=== PATIENT | male | born 1955 | race Caucasian/White ===

== ENCOUNTER → 2016-11-30 | Outpatient (CLI) | payer OTHER, BC ==
[~2016-11-30] MED LIST: NXM/40 PO; TRAM-10 PO
--- NOTE | 2016-11-30 15:03 | DIAGNOSTIC IMAGING REPORT ---
RIGHT SHOULDER MIN 2 VIEWS CLINICAL HISTORY: Right shoulder pain status post injury. COMPARISON: None FINDINGS: Alignment of the right acromioclavicular and glenohumeral joints is anatomic. No acute fracture is identified. Mild degenerative changes are present. IMPRESSION: No acute fracture or dislocation of the right shoulder. Electronically signed by: Favian Lundy M.D. 11/30/2016 3:01 PM Dictated Date/Time: 11/30/2016 3:00 PM
== END | disposition home or self-care (01) ==
LOC: C.RDSM 15:07
PROVIDERS: ATTEND Family Medicine
DX: S49.91XA Unspecified injury of right shoulder and upper arm, initial encounter (principal); X58.XXXA Exposure to other specified factors, initial encounter

== ENCOUNTER → 2017-03-13 | Outpatient (CLI) | payer OTHER, BC ==
--- NOTE | 2017-03-13 15:44 | DIAGNOSTIC IMAGING REPORT ---
MRI THE RIGHT SHOULDER NO CONTRAST CLINICAL HISTORY: Persistent right shoulder pain, unresponsive to conservative therapy COMPARISON STUDY: Conventional radiographic study dated 11/30/2016 FINDINGS: Imaging was performed in the axial, sagittal, and paracoronal planes. There are no areas of marrow edema to indicate neoplasm. There are no areas of marrow edema to indicate occult fracture. There is minor subcutaneous chondral marrow edema involving the lateral aspect of the humeral head. The bicipital tendon appears normal. There is no evidence of pathologic muscular atrophy. There is no evidence of rotator cuff tear. No labral tears are visualized on this nonarthrographic study. There are mild degenerative changes within the AC joint. IMPRESSION: 1. No evidence of rotator cuff tear 2. Normal bicipital tendon 3. Degenerative changes within the AC joint. Electronically signed by: Shimon Longoria M.D. 03/13/2017 3:42 PM Dictated Date/Time: 03/13/2017 2:46 PM
== END | disposition home or self-care (01) ==
LOC: C.MRIBC 13:52
PROVIDERS: ATTEND Family Medicine
DX: M25.511 Pain in right shoulder (principal)

== ENCOUNTER → 2017-10-23 | Outpatient (CLI) | payer BC ==
--- NOTE | 2017-10-23 16:44 | DIAGNOSTIC IMAGING REPORT ---
ABDOMEN 2VIEW W/PA CHEST RTN CLINICAL HISTORY: ABDOMINAL PAIN OF MULTIPLE SITES pain COMPARISON STUDY: 09/27/2016 FINDINGS: The soft tissues, psoas shadows, renal outlines and intestinal gas pattern appear normal. There is no evidence for bowel obstruction. There is no evidence for free intraperitoneal air. No abnormal abdominal calcifications are seen. A frontal view of the chest was performed and is unremarkable. IMPRESSION: Normal study. The above report was generated using voice recognition software. It may contain grammatical, syntax or spelling errors. Electronically signed by: Chao Ann M.D. 10/23/2017 4:43 PM Dictated Date/Time: 10/23/2017 4:42 PM
== END | disposition home or self-care (01) ==
LOC: C.RAD 16:20
PROVIDERS: ATTEND Internal Medicine
DX: R10.9 Unspecified abdominal pain (principal)

== ENCOUNTER → 2017-12-05 | Outpatient (CLI) | payer OTHER ==
[~2017-12-05] MED LIST changes: +OPTIRAY 320 IV PRN
--- NOTE | 2017-12-05 11:20 | DIAGNOSTIC IMAGING REPORT ---
CT OF THE ABDOMEN AND PELVIS WITH CONTRAST CLINICAL HISTORY: Abdominal pain. COMPARISON STUDY: CT of the abdomen November 09, 2014 and abdominal series October 23, 2017. TECHNIQUE: Following IV administration of 93 mL of [id number], axial images of the abdomen and pelvis were obtained from the lung bases to the proximal femurs. Images were reviewed in the axial, sagittal, and coronal planes. IV contrast was administered without complication. A dose lowering technique was utilized adhering to the principles of ALARA. Oral contrast was administered CT DOSE: 923.15 mGycm FINDINGS: Lung bases are clear. The liver, spleen, right adrenal gland, kidneys and pancreas are unremarkable. A 1.5 cm left adrenal nodule is unchanged since CT of November 07, 2014 consistent with a benign etiology. This likely reflects an adenoma. There is no biliary or pancreatic ductal dilatation. No abdominal or pelvic lymphadenopathy is present. Caliber and wall thickness of small and large bowel are normal. The appendix is normal. There is no ascites or lymphadenopathy. Prostate gland is mildly enlarged. Mild bladder wall thickening is likely due to underdistention. There is no ascites. There are no suspicious osseous lesions. Major vasculature of the abdomen and the pelvis is patent. IMPRESSION: 1. No acute process within the abdomen or pelvis. 2. Stable 1.5 cm left adrenal nodule since CT of November 07, 2014. Therefore, this is benign and likely reflects an adenoma. 3. Normal appendix. No bowel obstruction. Electronically signed by: Favian Lundy M.D. 12/05/2017 11:19 AM Dictated Date/Time: 12/05/2017 11:13 AM
== END | disposition home or self-care (01) ==
LOC: C.CTS 10:01
PROVIDERS: ATTEND Registered Nurse
DX: R10.11 Right upper quadrant pain (principal); R10.12 Left upper quadrant pain; T14.8XXA Other injury of unspecified body region, initial encounter; E27.9 Disorder of adrenal gland, unspecified; X58.XXXA Exposure to other specified factors, initial encounter

== ENCOUNTER 2021-09-01 12:04 | Inpatient (IN) ==
[2021-09-01] MEDS ORDERED: PROMETHAZINE 6.25 MG/50.25 ML BAG IV STA (12:26)
[2021-09-01] MEDS ORDERED: ONDANSETRON INJ 2 MG/ML 2 ML VIAL IV STA (12:26)
[2021-09-01] MEDS ORDERED: CEFEPIME 2,000 MG/20 ML VIAL IV STA (12:26)
[2021-09-01] MEDS ORDERED: SODIUM CHLORIDE 0.9% 1000ML 1,000 ML IV SCH (12:30)
--- NOTE | 2021-09-01 12:31 | Emergency Department Note ---
Impression & Plan Sepsis, Acute dehydration, Vomiting, Fever ED Provider Note NAME: AMNA MASON AGE: 66 SEX: M : 1955 ARRIVES VIA: Walk-In INFORMANT: [Patient][family] ED PROVIDER(S): [Castro Cordoba MD] CHIEF COMPLAINT: Illness HISTORY OF PRESENT ILLNESS: The patient is a 66-year-old male who had 2 teeth pulled yesterday. He is on amoxicillin and is on some narcotic pain medication. Yesterday evening, he began to feel ill with some nausea and vomiting, a fever, body aches and chills. He initially had some abdominal pain but that resolved. No diarrhea. He has some urinary frequency, no burning to urinate. The patient is not short of breath. No stuffy nose or sore throat, no real headache. He thought he might be allergic to his medications prescribed after the dental work. The patient is vaccinated against COVID-19, no Covid exposures. REVIEW OF SYSTEMS: See HPI for pertinent positives and negatives. A total of ten systems were reviewed and were otherwise negative. PMHx/PSHx: See Below SOCIAL HISTORY: See Below. PHYSICAL EXAM: GENERAL: Patient is in moderate distress, vomiting. HEENT: No acute trauma, normocephalic atraumatic, mucous membranes very dry, no nasal congestion, no scleral icterus. No exudate. The sockets were the teeth were pulled do not show drainage or surrounding erythema. NECK: No stridor, no adenopathy, no meningismus, trachea is midline. LUNGS: Clear to auscultation bilaterally, no wheeze, no rhonchi, breath sounds equal. Increased respiratory rate. HEART: Mildly tachycardic, regular rhythm. No murmurs. ABDOMEN: Soft, nontender, bowel sounds positive, no hernias, no peritonitis. EXTREMITIES: No cyanosis, mild bilateral pedal edema, full range of motion of all the joints without pain or difficulty, no signs for acute trauma. NEUROLOGIC: Oriented x 3, no acute motor or sensory deficits, no focal weakness. SKIN: No rash, no jaundice, no diaphoresis. DIFFERENTIAL DIAGNOSIS: Sepsis, UTI, pneumonia, COVID-19, metabolic abnormality, electrolyte abnormalities, cardiac sources, cellulitis, bacteremia, intracerebral event, toxicologic etiology, neurologic event, as well as other pathologies. EMERGENCY DEPARTMENT COURSE/PROCEDURES: ECG: Indication was tachycardia. The ECG shows a sinus tachycardia with a rate of 105. There is no ST elevation, no PVCs. The QTc is 415. Continuous Cardiac Monitoring: An order was placed for continuous cardiac monitoring. The monitor shows a rate of 113 with sinus tachycardia. Critical Care Note: I have personally spent 61 minutes of critical care time in the direct management of this patient. This includes bedside care, interpretation of diagnostic studies, and testing, discussion with consultants, patient, and family members, and other required patient management activities. This 61 minutes is in excess of all separately billable procedures. MEDICAL DECISION MAKING: There is a mild leukocytosis, this would be consistent with infection. There is a normal hemoglobin and platelet count. INR mildly elevated at 1.4. Sodium somewhat low at 132. Creatinine was elevated at 1.90, consistent with some acute kidney injury. Lactic acid level was over 3, consistent with sepsis/infection. There was elevation to the liver enzymes. Procalcitonin level was elevated. ECG showed a sinus tachycardia, no acute ischemia. Cardiac enzyme testing x1 is mildly elevated, this is consistent with acute cardiac injury/strain. Chest film shows some parenchymal congestion, no obvious focal pneumonia. No pneumothorax. Covid testing returned negative. Urinalysis was negative for infection. Abdominal and pelvis CT does not show any findings that would indicate infection. There were some gallstones but no acute cholecystitis. No diverticulitis, no bowel obstruction. The patient presents febrile, vomiting. He was dehydrated on exam, he appeared septic. The patient was aggressively managed. He was given IV Tylenol, IV cefepime. He received IV Zofran, IV Phenergan. He received 2 L of IV saline. The patient is aware of his findings. He is currently resting comfortably. He did have a slightly lower O2 saturation so he was placed on nasal cannula O2. The source of the infection is unclear. Bacteremia is of course a consideration given the recent dental work. Admission is warranted. I did speak with the patient and caseworker intake. The on-call hospitalist was consulted. We await the blood culture results. Past Med/Surg History Medical History Fall Severe epistaxis Surgical History No pertinent past surgical history Family History Mother Breast cancer Other Parkinson disease Prostate cancer Stroke Denies family history of Ovarian cancer Myocardial infarction Colorectal cancer Social History Smoking Status: Former smoker Tobacco Type: Cigarettes Second Hand Exposure: No; Hx Alcohol Use: Yes (1 glass of wine) Alcohol type: wine Alcohol Intake Frequency: 4 or More x per/Week Hx Substance Use: No Preferred Language: Mohawk Visual Impairment: No Limitations Hearing Ability: Normal marital status: Current Living Situation: Family current occupational status: employed current occupation: [employer] Feels Safe at Home: Yes Dental Care, Regularly: Yes Physical Activity Frequency: 5-6 Times per Week Allergies Allergies Allergy/AdvReac Type Severity Reaction Status Date / Time bee venom protein (honey bee) Allergy Unknown . Verified 09/01/21 14:58 atorvastatin AdvReac Unknown Verified 09/01/21 14:58 pravastatin AdvReac Unknown Verified 09/01/21 14:58 Home Meds Home Medications Medication Instructions Recorded Confirmed epinephrine 0.3 mg/0.3 mL 0.3 mg IM UD PRN #1 ea 08/05/19 09/01/21 injection, auto-injector acetaminophen 300 mg-codeine 30 mg 1 tab PO UD 09/01/21 09/01/21 tablet amoxicillin 500 mg capsule 500 mg PO TID 09/01/21 09/01/21 cholecalciferol (vitamin D3) 125 125 mcg PO DAILY 09/01/21 09/01/21 mcg (5,000 unit) tablet (Vitamin D3) rosuvastatin 5 mg tablet 5 mg PO Q OTHER DAY 09/01/21 09/01/21 Previous Rx's Medication Instructions Recorded mecobalamin (vitamin B12) 1,000 1,000 mcg PO DAILY #90 tab 05/25/20 mcg chewable tablet amlodipine 10 mg tablet 10 mg PO DAILY #90 tab 12/08/20 metformin 500 mg tablet 500 mg PO BID #180 tab 12/08/20 sildenafil (pulm.hypertension) 20 20 mg PO ONCE PRN #60 tab 02/17/21 mg tablet Results & Data (ED) Vital Signs Vital Signs - 24 hr 09/01/21 12:09 09/01/21 12:46 09/01/21 12:50 Temperature 39.1 C H Temperature Source Temporal Artery Scan Pulse Rate 120 H 103 H 105 H Pulse Rate from SpO2 Sensor Respiratory Rate 24 27 H 28 H Respiratory Effort / Characteristics Non-Labored Spontaneous Respiratory Depth Normal Respiratory Pattern Regular Blood Pressure 126/78 Blood Pressure Mean 94 Blood Pressure Position Sitting Pulse Oximetry 94 Oxygen Delivery Method Room Air Room Air Room Air Oxygen Flow Rate Sepsis Recent Fever Within 48 Hours No Sepsis New/Unexplained Change in Mental Status N/A Sepsis Action Taken by Nursing No Action Required 09/01/21 12:59 09/01/21 13:00 09/01/21 13:10 Temperature Temperature Source Pulse Rate 101 H 100 H Pulse Rate from SpO2 Sensor 102 H 100 H Respiratory Rate 27 H 25 H Respiratory Effort / Characteristics Respiratory Depth Respiratory Pattern Blood Pressure 138/66 Blood Pressure Mean 90 Blood Pressure Position Pulse Oximetry 93 93 Oxygen Delivery Method Room Air Room Air Room Air Oxygen Flow Rate Sepsis Recent Fever Within 48 Hours Sepsis New/Unexplained Change in Mental Status Sepsis Action Taken by Nursing 09/01/21 13:20 09/01/21 13:30 09/01/21 13:40 Temperature Temperature Source Pulse Rate 98 H 101 H 97 H Pulse Rate from SpO2 Sensor 97 H 101 H 97 H Respiratory Rate 24 27 H 25 H Respiratory Effort / Characteristics Respiratory Depth Respiratory Pattern Blood Pressure 124/63 Blood Pressure Mean 83 Blood Pressure Position Pulse Oximetry 92 94 98 Oxygen Delivery Method Room Air Room Air Room Air Oxygen Flow Rate Sepsis Recent Fever Within 48 Hours Sepsis New/Unexplained Change in Mental Status Sepsis Action Taken by Nursing 09/01/21 13:50 09/01/21 14:00 09/01/21 14:10 Temperature Temperature Source Pulse Rate 98 H 96 H 100 H Pulse Rate from SpO2 Sensor 97 H 96 H 99 H Respiratory Rate 24 22 24 Respiratory Effort / Characteristics Respiratory Depth Respiratory Pattern Blood Pressure 127/69 Blood Pressure Mean 88 Blood Pressure Position Pulse Oximetry 93 95 95 Oxygen Delivery Method Room Air Room Air Room Air Oxygen Flow Rate Sepsis Recent Fever Within 48 Hours Sepsis New/Unexplained Change in Mental Status Sepsis Action Taken by Nursing 09/01/21 14:20 09/01/21 14:30 09/01/21 14:40 Temperature Temperature Source Pulse Rate 104 H 112 H 115 H Pulse Rate from SpO2 Sensor 104 H 113 H 115 H Respiratory Rate 24 26 H 28 H Respiratory Effort / Characteristics Respiratory Depth Respiratory Pattern Blood Pressure 103/65 Blood Pressure Mean 77 Blood Pressure Position Pulse Oximetry 95 93 89 L Oxygen Delivery Method Room Air Room Air Room Air Oxygen Flow Rate Sepsis Recent Fever Within 48 Hours Sepsis New/Unexplained Change in Mental Status Sepsis Action Taken by Nursing 09/01/21 14:50 Temperature Temperature Source Pulse Rate 113 H Pulse Rate from SpO2 Sensor 108 H Respiratory Rate 12 Respiratory Effort / Characteristics Respiratory Depth Respiratory Pattern Blood Pressure Blood Pressure Mean Blood Pressure Position Pulse Oximetry 95 Oxygen Delivery Method Nasal Cannula Oxygen Flow Rate 2 Sepsis Recent Fever Within 48 Hours Sepsis New/Unexplained Change in Mental Status Sepsis Action Taken by Residential Medications Current Medication List: was personally reviewed by me Laboratory Data Attestation: I reviewed the patient's lab results. Result diagrams: 09/01/21 12:54 09/01/21 13:51 Lab Results 09/01/21 09/01/21 09/01/21 Range/Units 12:54 12:54 12:54 WBC 13.44 H (4.8-10.8) K/uL RBC 5.41 (4.7-6.1) M/uL Hgb 16.1 (14.0-18.0) g/dL Hct 47.8 (42-52) % MCV 88.4 (80-100) fL MCH 29.8 (25-34) pg MCHC 33.7 (32-36) g/dL RDW Std Deviation 44.1 (36.4-46.3) fL RDW Coeff of Kaylah 13.6 (11.5-14.5) % Plt Count 259 (130-400) K/uL MPV 9.7 (7.4-10.4) fL Immature Gran % (Auto) 0.7 % Neut % (Auto) 94.9 % Lymph % (Auto) 2.1 % [place] % (Auto) 2.2 % Eos % (Auto) 0.0 % Baso % (Auto) 0.1 % Neut # (Auto) 12.76 H (1.4-6.5) K/uL Lymph # (Auto) 0.28 L (1.2-3.4) K/uL [place] # (Auto) 0.29 (0.11-0.59) K/uL Eos # (Auto) 0.00 (0-0.5) K/uL Baso # (Auto) 0.02 (0-0.2) K/uL Immature Gran # (Auto) 0.09 H (0.00-0.02) K/uL PT 14.2 H (9.0-12.0) Seconds INR 1.4 H (0.9-1.1) APTT 28.2 (21.0-31.0) Seconds PTT Ratio 1.1 Sodium 132 L (136-145) mmol/L Potassium (3.5-5.1) mmol/L Chloride 101 (98-107) mmol/L Carbon Dioxide 23 (21-32) mmol/L Anion Gap 8.0 (3-11) BUN 30 H (7-18) mg/dl Creatinine 1.90 H (0.6-1.4) mg/dl Est Cr Clr Drug Dosing 45.3 ml/min Est GFR ( Amer) 41.4 ml/min Est GFR (Non-Af Amer) 35.7 ml/min BUN/Creatinine Ratio 15.9 (10-20) Glucose 166 H (70-99) mg/dl Lactate (0.4-2.0) mmol/L Calcium 9.8 (8.5-10.1) mg/dl Magnesium (1.8-2.4) mg/dl Total Bilirubin 2.6 H (0.2-1) mg/dl AST (15-37) U/L ALT 198 H (12-78) U/L Alkaline Phosphatase 98 (45-117) U/L Troponin I 0.082 H* (0-0.045) ng/ml Total Protein 7.5 (6.4-8.2) gm/dl Albumin 3.2 L (3.4-5.0) gm/dl Globulin 4.3 H (2.5-4.0) gm/dl Albumin/Globulin Ratio 0.7 L (0.9-2) Procalcitonin (0-0.5) ng/ml Urine Color Urine Appearance (Clear) Urine pH (4.5-7.5) Ur Specific [place] (1.000-1.030) Urine Protein (Negative) Urine Glucose (UA) (Negative) Urine Ketones (Negative) Urine Blood (Negative) Urine Nitrite (Negative) Urine Bilirubin (Negative) Urine Urobilinogen (Negative) Ur Leukocyte Esterase (Negative) Urine WBC (Auto) (0-5) /hpf Urine RBC (Auto) (0-4) /hpf U Hyaline Cast (Auto) (0-5) /lpf U Epithel Cells (Auto) (0-5) /lpf Urine Bacteria (Auto) (Negative) COVID-19 Eval Order SARS-CoV-2 (PCR) (Negative) 09/01/21 09/01/21 09/01/21 Range/Units 13:02 13:02 13:51 WBC (4.8-10.8) K/uL RBC (4.7-6.1) M/uL Hgb (14.0-18.0) g/dL Hct (42-52) % MCV (80-100) fL MCH (25-34) pg MCHC (32-36) g/dL RDW Std Deviation (36.4-46.3) fL RDW Coeff of Akylah (11.5-14.5) % Plt Count (130-400) K/uL MPV (7.4-10.4) fL Immature Gran % (Auto) % Neut % (Auto) % Lymph % (Auto) % [place] % (Auto) % Eos % (Auto) % Baso % (Auto) % Neut # (Auto) (1.4-6.5) K/uL Lymph # (Auto) (1.2-3.4) K/uL [place] # (Auto) (0.11-0.59) K/uL Eos # (Auto) (0-0.5) K/uL Baso # (Auto) (0-0.2) K/uL Immature Gran # (Auto) (0.00-0.02) K/uL PT (9.0-12.0) Seconds INR (0.9-1.1) APTT (21.0-31.0) Seconds PTT Ratio Sodium (136-145) mmol/L Potassium (3.5-5.1) mmol/L Chloride (98-107) mmol/L Carbon Dioxide (21-32) mmol/L Anion Gap (3-11) BUN (7-18) mg/dl Creatinine (0.6-1.4) mg/dl Est Cr Clr Drug Dosing ml/min Est GFR ( Amer) ml/min Est GFR (Non-Af Amer) ml/min BUN/Creatinine Ratio (10-20) Glucose (70-99) mg/dl Lactate 3.1 H* (0.4-2.0) mmol/L Calcium (8.5-10.1) mg/dl Magnesium (1.8-2.4) mg/dl Total Bilirubin (0.2-1) mg/dl AST (15-37) U/L ALT (12-78) U/L Alkaline Phosphatase (45-117) U/L Troponin I (0-0.045) ng/ml Total Protein (6.4-8.2) gm/dl Albumin (3.4-5.0) gm/dl Globulin (2.5-4.0) gm/dl Albumin/Globulin Ratio (0.9-2) Procalcitonin (0-0.5) ng/ml Urine Color Urine Appearance (Clear) Urine pH (4.5-7.5) Ur Specific [place] (1.000-1.030) Urine Protein (Negative) Urine Glucose (UA) (Negative) Urine Ketones (Negative) Urine Blood (Negative) Urine Nitrite (Negative) Urine Bilirubin (Negative) Urine Urobilinogen (Negative) Ur Leukocyte Esterase (Negative) Urine WBC (Auto) (0-5) /hpf Urine RBC (Auto) (0-4) /hpf U Hyaline Cast (Auto) (0-5) /lpf U Epithel Cells (Auto) (0-5) /lpf Urine Bacteria (Auto) (Negative) COVID-19 Eval Order Covid19 at [facility] SARS-CoV-2 (PCR) NEGATIVE (Negative) 09/01/21 09/01/21 09/01/21 Range/Units 13:51 13:51 14:50 WBC (4.8-10.8) K/uL RBC (4.7-6.1) M/uL Hgb (14.0-18.0) g/dL Hct (42-52) % MCV (80-100) fL MCH (25-34) pg MCHC (32-36) g/dL RDW Std Deviation (36.4-46.3) fL RDW Coeff of Kaylah (11.5-14.5) % Plt Count (130-400) K/uL MPV (7.4-10.4) fL Immature Gran % (Auto) % Neut % (Auto) % Lymph % (Auto) % [place] % (Auto) % Eos % (Auto) % Baso % (Auto) % Neut # (Auto) (1.4-6.5) K/uL Lymph # (Auto) (1.2-3.4) K/uL [place] # (Auto) (0.11-0.59) K/uL Eos # (Auto) (0-0.5) K/uL Baso # (Auto) (0-0.2) K/uL Immature Gran # (Auto) (0.00-0.02) K/uL PT (9.0-12.0) Seconds INR (0.9-1.1) APTT (21.0-31.0) Seconds PTT Ratio Sodium (136-145) mmol/L Potassium 4.5 (3.5-5.1) mmol/L Chloride (98-107) mmol/L Carbon Dioxide (21-32) mmol/L Anion Gap (3-11) BUN (7-18) mg/dl Creatinine (0.6-1.4) mg/dl Est Cr Clr Drug Dosing ml/min Est GFR ( Amer) ml/min Est GFR (Non-Af Amer) ml/min BUN/Creatinine Ratio (10-20) Glucose (70-99) mg/dl Lactate (0.4-2.0) mmol/L Calcium (8.5-10.1) mg/dl Magnesium 2.0 (1.8-2.4) mg/dl Total Bilirubin (0.2-1) mg/dl AST 152 H (15-37) U/L ALT (12-78) U/L Alkaline Phosphatase (45-117) U/L Troponin I (0-0.045) ng/ml Total Protein (6.4-8.2) gm/dl Albumin (3.4-5.0) gm/dl Globulin (2.5-4.0) gm/dl Albumin/Globulin Ratio (0.9-2) Procalcitonin 39.49 H (0-0.5) ng/ml Urine Color Dark Yellow Urine Appearance Clear (Clear) Urine pH 6.5 (4.5-7.5) Ur Specific [place] 1.026 (1.000-1.030) Urine Protein 2+ H (Negative) Urine Glucose (UA) Negative (Negative) Urine Ketones Negative (Negative) Urine Blood 3+ H (Negative) Urine Nitrite Negative (Negative) Urine Bilirubin 1+ H (Negative) Urine Urobilinogen Negative (Negative) Ur Leukocyte Esterase Negative (Negative) Urine WBC (Auto) 1-5 (0-5) /hpf Urine RBC (Auto) 0-4 (0-4) /hpf U Hyaline Cast (Auto) 1-5 (0-5) /lpf U Epithel Cells (Auto) 20-30 H (0-5) /lpf Urine Bacteria (Auto) Negative (Negative) COVID-19 Eval Order SARS-CoV-2 (PCR) (Negative) 09/01/21 Range/Units 15:54 WBC (4.8-10.8) K/uL RBC (4.7-6.1) M/uL Hgb (14.0-18.0) g/dL Hct (42-52) % MCV (80-100) fL MCH (25-34) pg MCHC (32-36) g/dL RDW Std Deviation (36.4-46.3) fL RDW Coeff of Kaylah (11.5-14.5) % Plt Count (130-400) K/uL MPV (7.4-10.4) fL Immature Gran % (Auto) % Neut % (Auto) % Lymph % (Auto) % [place] % (Auto) % Eos % (Auto) % Baso % (Auto) % Neut # (Auto) (1.4-6.5) K/uL Lymph # (Auto) (1.2-3.4) K/uL [place] # (Auto) (0.11-0.59) K/uL Eos # (Auto) (0-0.5) K/uL Baso # (Auto) (0-0.2) K/uL Immature Gran # (Auto) (0.00-0.02) K/uL PT (9.0-12.0) Seconds INR (0.9-1.1) APTT (21.0-31.0) Seconds PTT Ratio Sodium (136-145) mmol/L Potassium (3.5-5.1) mmol/L Chloride (98-107) mmol/L Carbon Dioxide (21-32) mmol/L Anion Gap (3-11) BUN (7-18) mg/dl Creatinine (0.6-1.4) mg/dl Est Cr Clr Drug Dosing ml/min Est GFR ( Amer) ml/min Est GFR (Non-Af Amer) ml/min BUN/Creatinine Ratio (10-20) Glucose (70-99) mg/dl Lactate 2.0 (0.4-2.0) mmol/L Calcium (8.5-10.1) mg/dl Magnesium (1.8-2.4) mg/dl Total Bilirubin (0.2-1) mg/dl AST (15-37) U/L ALT (12-78) U/L Alkaline Phosphatase (45-117) U/L Troponin I (0-0.045) ng/ml Total Protein (6.4-8.2) gm/dl Albumin (3.4-5.0) gm/dl Globulin (2.5-4.0) gm/dl Albumin/Globulin Ratio (0.9-2) Procalcitonin (0-0.5) ng/ml Urine Color Urine Appearance (Clear) Urine pH (4.5-7.5) Ur Specific [place] (1.000-1.030) Urine Protein (Negative) Urine Glucose (UA) (Negative) Urine Ketones (Negative) Urine Blood (Negative) Urine Nitrite (Negative) Urine Bilirubin (Negative) Urine Urobilinogen (Negative) Ur Leukocyte Esterase (Negative) Urine WBC (Auto) (0-5) /hpf Urine RBC (Auto) (0-4) /hpf U Hyaline Cast (Auto) (0-5) /lpf U Epithel Cells (Auto) (0-5) /lpf Urine Bacteria (Auto) (Negative) COVID-19 Eval Order SARS-CoV-2 (PCR) (Negative) Administered Medications Discontinued Medications Acetaminophen (Acetaminophen 1000 Mg/100 Ml Iv) 1,000 mg IV NOW STA Stop: 09/01/21 12:34 Last Admin: 09/01/21 14:10 Dose: 1,000 mg Documented by: [id number] Sodium Chloride (Nss 1000ml) 1,000 mls @ 999 mls/hr IV .Q1H1M SHANTA Stop: 09/01/21 13:30 Last Infusion: 09/01/21 14:40 Dose: 0 mls/hr Documented by: [id number] Admin: 09/01/21 13:37 Dose: 999 mls/hr Documented by: [id number] Cefepime HCl (Maxipime) 2,000 mg in 20 mls @ 5 mls/min IV NOW STA; Protocol Stop: 09/01/21 12:29 Last Admin: 09/01/21 14:10 Dose: 5 mls/min Documented by: [id number] Promethazine HCl (Phenergan) 6.25 mg in 50.25 mls @ 201 mls/hr IV NOW STA Stop: 09/01/21 12:40 Last Infusion: 09/01/21 14:32 Dose: 0 mls/hr Documented by: [id number] Admin: 09/01/21 14:10 Dose: 201 mls/hr Documented by: [id number] Sodium Chloride (Nss 1000ml) 1,000 mls @ 999 mls/hr IV .Q1H1M ONE Stop: 09/01/21 14:51 Last Infusion: 09/01/21 15:56 Dose: 0 mls/hr Documented by: [id number] Admin: 09/01/21 14:53 Dose: 999 mls/hr Documented by: [id number] Daptomycin 450 mg/ Syringe 9 mls @ 4.5 mls/min IV NOW ONE; Protocol Stop: 09/01/21 15:31 Last Admin: 09/01/21 16:03 Dose: 4.5 mls/min Documented by: [id number] Ondansetron HCl (Ondansetron Inj 2 Mg/Ml 2 Ml Vial) 4 mg IV NOW STA Stop: 09/01/21 12:27 Last Admin: 09/01/21 14:10 Dose: 4 mg Documented by: [id number] Imaging Data Radiologist's Impression: Chest X-Ray 09/01/21 12:26 XR chest 1V portable HISTORY: SEPSIS COMPARISON: Chest 10/23/2017. FINDINGS: No pneumothorax. No pleural effusions. The heart is normal in size. There is bibasilar interstitial thickening which has progressed. The upper lung zones are clear. IMPRESSION: Bibasilar interstitial thickening/opacities. This could be due to the low lung volumes or a developing pneumonia. ACT 112: Negative or not required by law. Electronically signed by: Clinton Rob M.D. 09/01/2021 2:16 PM Abdomen/Pelvis CT 09/01/21 14:33 CT SCAN OF THE ABDOMEN AND PELVIS WITHOUT IV CONTRAST CLINICAL HISTORY: Generalized abdominal pain. Fever. Elevated creatinine. COMPARISON STUDY: Abdominal CT dated 12/04/2018. TECHNIQUE: CT scan of the abdomen and pelvis is performed from the lung bases to the proximal femora. Images are reviewed in the axial, sagittal, and coronal planes. IV contrast was not administered for this examination due to poor renal function. Note that the examination is suboptimal without IV contrast. Ex amination is also degraded by motion artifact. A dose lowering technique was utilized adhering to the principles of ALARA. CT DOSE: 887.72 mGy.cm FINDINGS: Lung bases: The heart is normal in size and without pericardial effusion. Trace pleural effusions are noted. There is bibasilar scarring/atelectasis. No airspace consolidation is seen typical for pneumonia. There is a tiny hiatal hernia. Liver: The unenhanced liver is enlarged, measuring 19.8 cm in length. The liver demonstrates diffusely diminished attenuation consistent with hepatic steatosis. Fatty sparing is seen adjacent to gallbladder fossa. There is no intrahepatic biliary ductal dilatation. Gallbladder: Suspect tiny calcified gallstones. There is no CT evidence of acute cholecystitis. Spleen: Normal in size and attenuation. Pancreas: Unremarkable. Adrenal glands: A 2 cm left adrenal adenoma is unchanged. The right adrenal gland is normal in appearance. Kidneys: The unenhanced kidneys are normal in size and without hydronephrosis. There are no renal calculi identified. There is no evidence of contour deforming renal mass lesion. There is mild nonspecific bilateral perinephric stranding. Abdominal vasculature: There is advanced atherosclerotic calcification and mild ectasia of the abdominal aorta. Bowel: There is no bowel obstruction. Moderate fecal retention is seen throughout the colon. There are scattered colonic diverticula without CT evidence of acute diverticulitis. The appendix is well-visualized and normal. Peritoneum: There is no intraperitoneal free air or abdominal ascites. There is a small fat-containing umbilical hernia. Lymphadenopathy: None. Pelvic viscera: The prostate gland is enlarged and heterogeneous noting median lobe hypertrophy. The bladder wall is thickened and trabeculated indicating chronic outlet obstruction Skeletal structures: There is mild to moderate lumbosacral spondylosis. No lytic or blastic lesions are seen. IMPRESSION: 1. There is nonspecific bilateral perinephric stranding. Correlate with clinical findings and urinalysis. 2. Trace pleural effusions. 3. Suspect cholelithiasis. 4. No bowel obstruction. 5. Prostatomegaly with bladder wall thickening and trabeculation. This likely represents the sequelae of chronic outlet obstruction, and should also be correlated with urinalysis. 6. Hepatomegaly and hepatic steatosis. 7. Additional findings as above. ACT 112: Negative or not required by law. Electronically signed by: Castro Adams M.D. 09/01/2021 4:19 PM Discharge Plan Visit Data Chief Complaint: Illness Stated Complaint: SEVERE VOMITING,CHILLS,TOOTH PULLED YESTERDAY ED Provider: Castro Cordoba Discharge Problem: Sepsis, Acute dehydration, Vomiting, Fever Patient Disposition: Admitted As Inpatient Condition: Serious Forms Stand Alone Forms: My [facility] [employer] Prescriptions Prescriptions: No Action mecobalamin (vitamin B12) 1,000 mcg tablet,chewable 1,000 mcg PO DAILY Qty: 90 RF: 3 amlodipine 10 mg tablet 10 mg PO DAILY Qty: 90 RF: 3 metformin 500 mg tablet 500 mg PO BID Qty: 180 RF: 3 epinephrine 0.3 mg/0.3 mL auto-injector 0.3 mg IM UD PRN (Reason: Allergic Reaction) Qty: 1 RF: 0 sildenafil (pulm.hypertension) 20 mg tablet 20 mg PO ONCE PRN (Reason: sexual activity) Qty: 60 RF: 6 amoxicillin 500 mg capsule 500 mg PO TID RF: 0 acetaminophen-codeine 300-30 mg tablet 1 tab PO UD RF: 0 rosuvastatin 5 mg tablet 5 mg PO Q OTHER DAY RF: 0 cholecalciferol (vitamin D3) [Vitamin D3] 125 mcg (5,000 unit) Tablet 125 mcg PO DAILY RF: 0 Referrals Referrals: Haritha Mckoy MD [Primary Care Provider] -
[2021-09-01] MEDS ORDERED: ACETAMINOPHEN 1000 MG/100 ML IV IV STA (12:33)
[2021-09-01 13:21] LABS: Basophils # (auto) 0.02 K/uL (0-0.2); Basophils % (auto) 0.1 %; Hematocrit (blood only) 47.8 % (42-52); Hemoglobin 16.1 g/dL (14.0-18.0); Immature Granulocytes # (auto) 0.09 K/uL (0.00-0.02); Immature Granulocytes % (auto) 0.7 %; Lymphocytes # (auto) 0.28 K/uL (1.2-3.4); Lymphocytes % (auto) 2.1 %; Mean Corpuscular Hemoglobin 29.8 pg (25-34); Mean Corpuscular Hgb Conc 33.7 g/dL (32-36); Mean Corpuscular Volume 88.4 fL (80-100); Mean Platelet Volume 9.7 fL (7.4-10.4); Monocytes # (auto) 0.29 K/uL (0.11-0.59); Monocytes % (auto) 2.2 %; Neutrophils # (auto) 12.76 K/uL (1.4-6.5); Neutrophils % (auto) 94.9 %; Platelet Count 259 K/uL (130-400); RDW Coefficient of Variation 13.6 % (11.5-14.5); RDW Standard Deviation 44.1 fL (36.4-46.3); Red Blood Count 5.41 M/uL (4.7-6.1); White Blood Count 13.44 K/uL (4.8-10.8)
[2021-09-01 13:48] LABS: Albumin Globulin Ratio 0.7 (0.9-2); Albumin Level 3.2 gm/dl (3.4-5.0); BUN Creatinine Ratio 15.9 (10-20); Bilirubin,Total 2.6 mg/dl (0.2-1); Calcium 9.8 mg/dl (8.5-10.1); Creatinine Clr Calc Pharmacy 45.3 ml/min; Est GFR (African American) 41.4 ml/min; Est GFR (Non-African American) 35.7 ml/min; Globulin 4.3 gm/dl (2.5-4.0); Total Protein 7.5 gm/dl (6.4-8.2); Troponin I 0.082 ng/ml (0-0.045)
[2021-09-01] MEDS ORDERED: SODIUM CHLORIDE 0.9% 1000ML 1,000 ML IV ONE (13:51)
[2021-09-01 14:02] LABS: INR 1.4 (0.9-1.1); Partial Thromboplastin Ratio 1.1; Partial Thromboplastin Time 28.2 Seconds (21.0-31.0); Prothrombin Time 14.2 Seconds (9.0-12.0)
[2021-09-01 14:17] LABS: Potassium 4.5 mmol/L (3.5-5.1)
--- NOTE | 2021-09-01 14:18 | XRay Report ---
XR chest 1V portable HISTORY: SEPSIS COMPARISON: Chest 10/23/2017. FINDINGS: No pneumothorax. No pleural effusions. The heart is normal in size. There is bibasilar inte rstitial thickening which has progressed. The upper lung zones are clear. IMPRESSION: Bibasilar interstitial thickening/opacities. This could be due to the low lung volumes or a developin g pneumonia. ACT 112: Negative or not required by law. Electronically signed by: Clinton Rob M.D. 09/01/2021 2:16 PM
[2021-09-01 15:09] LABS: Appearance Urine Clear (Clear); Bacteria Urine Automated Negative (Negative); Blood Urine 3+ (Negative); Color Urine Dark Yellow; Epithelial Cell Urine Auto 20-30 /lpf (0-5); Glucose Urine UA Negative (Negative); Ketones Urine Negative (Negative); Leukocyte Esterase Urine Negative (Negative); Nitrite Urine Negative (Negative); Protein Urine 2+ (Negative); RBC Urine Automated 0-4 /hpf (0-4); Specific Gravity Urine 1.026 (1.000-1.030); Urobilinogen Urine Negative (Negative); pH Urine 6.5 (4.5-7.5)
[2021-09-01 15:19] LABS: Bilirubin Urine 1+ (Negative)
[2021-09-01] MEDS ORDERED: DAPTOmycin 450 MG in SYRINGE 0 ML IV ONE (15:30)
--- NOTE | 2021-09-01 16:20 | CT Scan Report ---
CT SCAN OF THE ABDOMEN AND PELVIS WITHOUT IV CONTRAST CLINICAL HISTORY: Generalized abdominal pain. Fever. Elevated creatinine. COMPARISON STUDY: Abdominal CT dated 12/04/2018. TECHNIQUE: CT scan of the abdomen and pelvis is performed from the lung bases to the proximal femora. Images are reviewed in the axial, sagittal, and coronal planes. IV contrast was not administered for this examination due to poor renal function. Note that the examination is suboptimal without IV cont rast. Examination is also degraded by motion artifact. A dose lowering technique was utilized adherin g to the principles of ALARA. CT DOSE: 887.72 mGy.cm FINDINGS: Lung bases: The heart is normal in size and without pericardial effusion. Trace pleural effusions are noted. There is bibasilar scarring/atelectasis. No airspace consolidation is seen typical for pneumo dyana. There is a tiny hiatal hernia. Liver: The unenhanced liver is enlarged, measuring 19.8 cm in length. The liver demonstrates diffusel y diminished attenuation consistent with hepatic steatosis. Fatty sparing is seen adjacent to gallbla dder fossa. There is no intrahepatic biliary ductal dilatation. Gallbladder: Suspect tiny calcified gallstones. There is no CT evidence of acute cholecystitis. Spleen: Normal in size and attenuation. Pancreas: Unremarkable. Adrenal glands: A 2 cm left adrenal adenoma is unchanged. The right adrenal gland is normal in appear ance. Kidneys: The unenhanced kidneys are normal in size and without hydronephrosis. There are no renal micaela culi identified. There is no evidence of contour deforming renal mass lesion. There is mild nonspecif ic bilateral perinephric stranding. Abdominal vasculature: There is advanced atherosclerotic calcification and mild ectasia of the abdomi nal aorta. Bowel: There is no bowel obstruction. Moderate fecal retention is seen throughout the colon. There ar e scattered colonic diverticula without CT evidence of acute diverticulitis. The appendix is well-vi sualized and normal. Peritoneum: There is no intraperitoneal free air or abdominal ascites. There is a small fat-containin g umbilical hernia. Lymphadenopathy: None. Pelvic viscera: The prostate gland is enlarged and heterogeneous noting median lobe hypertrophy. The bladder wall is thickened and trabeculated indicating chronic outlet obstruction Skeletal structures: There is mild to moderate lumbosacral spondylosis. No lytic or blastic lesions a re seen. IMPRESSION: 1. There is nonspecific bilateral perinephric stranding. Correlate with clinical findings and urinaly sis. 2. Trace pleural effusions. 3. Suspect cholelithiasis. 4. No bowel obstruction. 5. Prostatomegaly with bladder wall thickening and trabeculation. This likely represents the sequelae of chronic outlet obstruction, and should also be correlated with urinalysis. 6. Hepatomegaly and hepatic steatosis. 7. Additional findings as above. ACT 112: Negative or not required by law. Electronically signed by: Castro Adams M.D. 09/01/2021 4:19 PM
[2021-09-01] MEDS ORDERED: SODIUM CHLORIDE 0.9% 1000ML 1,000 ML IV STA (17:00)
--- NOTE | 2021-09-01 17:06 | History & Physical Report ---
Date of Service September 01, 2021 Assessment & Plan (1) Sepsis: Plan: Lactate 3.1, repeat 2.0 Significantly dehydrated on exam and not eating therefore will continue IV fluids overnight Suspect source from his recent dental work vs prostatitis vs PNA, unremarkable UA would favor the former, CXR relatively unremarkable given severity of illness Lack of definitive etiology warrants tick borne workup in addition however which has so far been negative, babesiosis and anaplasmosis PCR pending Follow up urine and blood cultures. Daptomycin + Zosyn (switched from cefepime for better anaerobic coverage) (2) Acute dehydration: Plan: NSS 2L bolus given in ER. Continue LR @ 200ml/hr overnight, reassess tomorrow. (3) Acute kidney injury: Plan: Cr 1.9 on admission, baseline 1.1. Suspect pre-renal, IV fluids as above (4) Vomiting: Plan: Ondansetron 4mg IV Q4H PRN Clear liquid diet, advance as tolerated (5) Sleep apnea: Plan: CPAP HS (6) Acid reflux disease: Plan: On no specific treatment for this. Monitor for reflux symptoms. (7) Hypertension: Plan: Hold amlodipine in setting of relative hypotension with sepsis (8) BPH (benign prostatic hyperplasia): Plan: Bladder scan q shift. Call provider if PVR > 400ml On no medication for this but also does not note any chronic symptoms (9) Hyperlipidemia: Plan: Continue rosuvastatin 5mg PO q2d Plan: VTE Prophylaxis - Lovenox 40mg SQ daily Diet - T2DM, clear liquid due to vomiting, advance as tolerated. Prior HbA1C 5.2 in May, unclear why he is on metformin but will get BSG ACHS with insulin correction coerage while here. Disposition - admit to PCU Admission and Anticipated Discharge Date Admission Date: September 01, 2021 History of Present Illness Chief Complaint: Nausea and vomiting, generalized aches and chills Primary Care Provider: Haritha Mckoy MD Leroy Ceja is a 66 year old male who presents to the ER with chills, nausea, vomiting and generalized weakness. He reports having a tooth pulled yesterday and was put on amoxicillin and codeine. He started having nausea and vomiting yesterday which was followed by chills, generalized body aches. He has not managed to keep down any liquids of solids since yesterday. No shortness of breath, nasal congestion, cough or chest pain. In the ER CXR shows bibasilar interstitial opacities, CT A/P shows non-specific perinephric stranding, prostatomegaly with bladder wall thickening and trabeculation, UA/micro negative for nitrites, bacteria and LE. LFTs other than ALP were elevated but no abdominal pain or imaging to suggest liver is the source of infection. WBC elevated and procalcitonin significantly elevated. He was referred to medicine for admission and ongoing management of sepsis and dehydration. Allergies Allergy/AdvReac Type Severity Reaction Status Date / Time bee venom protein (honey bee) Allergy Unknown . Verified 09/01/21 14:58 atorvastatin AdvReac Unknown Verified 09/01/21 14:58 pravastatin AdvReac Unknown Verified 09/01/21 14:58 Home Medications Medication Instructions Recorded Confirmed Type epinephrine 0.3 mg/0.3 mL 0.3 mg IM UD PRN #1 ea 08/05/19 09/01/21 History injection, auto-injector mecobalamin (vitamin B12) 1,000 1,000 mcg PO DAILY #90 tab 05/25/20 09/01/21 Rx mcg chewable tablet amlodipine 10 mg tablet 10 mg PO DAILY #90 tab 12/08/20 09/01/21 Rx metformin 500 mg tablet 500 mg PO BID #180 tab 12/08/20 09/01/21 Rx sildenafil (pulm.hypertension) 20 20 mg PO ONCE PRN #60 tab 02/17/21 09/01/21 Rx mg tablet acetaminophen 300 mg-codeine 30 mg 1 tab PO UD 09/01/21 09/01/21 History tablet amoxicillin 500 mg capsule 500 mg PO TID 09/01/21 09/01/21 History cholecalciferol (vitamin D3) 125 125 mcg PO DAILY 09/01/21 09/01/21 History mcg (5,000 unit) tablet (Vitamin D3) rosuvastatin 5 mg tablet 5 mg PO Q OTHER DAY 09/01/21 09/01/21 History Past Med/Surg History Medical History (Updated 09/02/21 @ 08:33 by Jose M Michaels MD) Fall Nocturnal hypoxemia Severe epistaxis Sleep apnea Surgical History No pertinent past surgical history Family History Mother Breast cancer Other Parkinson disease Prostate cancer Stroke Denies family history of Ovarian cancer Myocardial infarction Colorectal cancer Social History Smoking Status: Former smoker Tobacco Type: Cigarettes Second Hand Exposure: No; Hx Alcohol Use: Yes (1 glass of wine) Alcohol type: wine Alcohol Intake Frequency: 4 or More x per/Week Hx Substance Use: No Preferred Language: Hungarian Communication Ability: Effective Visual Impairment: No Limitations Hearing Ability: Normal Contact Lens Polisher Required: No Beliefs That Will Affect Care: None marital status: Current Living Situation: Family current occupational status: employed current occupation: [employer] Feels Safe at Home: Yes Dental Care, Regularly: Yes Physical Activity Frequency: 5-6 Times per Week Review of Systems Review of Systems: All systems reviewed & are unremarkable except as noted in HPI & below Physical Exam Constitutional: well nourished, + ill appearing and + obese; no acute distress Eyes: + anicteric sclerae; normal pupil size ENMT: Ears: no external ear abnormality Nose: no external nose abnormality Mouth: + dry oral mucous membranes (very dry) and + poor dentition; no gingival abnormality Neck: trachea midline, no thyromegaly trachea midline, + short neck and + thick neck; no anterior neck swelling Respiratory: normal respiratory effort, lungs clear to auscultation no stridor Auscultation: + diminished lung sounds (bibasal, poor inspiratory effort) Cardiovascular: RRR, no murmur, no edema Gastrointestinal (Abdomen): Inspection/Auscultation: normal bowel sounds Percussion/Palpation: abdomen soft; abdomen nontender, no guarding and abdomen not rigid Musculoskeletal: no cyanosis or clubbing, extremities motor strength 5/5 Skin: no rashes, warm and dry Neurologic: moves all extremities and awake; no focal motor deficits and not confused Psychiatric: A+Ox3, euthymic affect Genitourinary: no CVA tenderness Lymphatic: no cervical or axillary lymphadenopathy Results & Data Results & Data ([facility]) Vital Signs (Past 12 Hours) Vital Signs Temp Pulse Resp BP Pulse Ox 09/01/21 14:50 113 H 12 95 09/01/21 14:40 115 H 28 H 89 L 09/01/21 14:30 112 H 26 H 103/65 93 09/01/21 14:20 104 H 24 95 09/01/21 14:10 100 H 24 95 09/01/21 14:00 96 H 22 127/69 95 09/01/21 13:50 98 H 24 93 09/01/21 13:40 97 H 25 H 98 09/01/21 13:30 101 H 27 H 124/63 94 09/01/21 13:20 98 H 24 92 09/01/21 13:10 100 H 25 H 93 09/01/21 13:00 101 H 27 H 138/66 93 09/01/21 12:50 105 H 28 H 09/01/21 12:46 103 H 27 H 09/01/21 12:09 39.1 C H 120 H 24 126/78 94 Diagnostic Findings XR chest 1V portable HISTORY: SEPSIS COMPARISON: Chest 10/23/2017. FINDINGS: No pneumothorax. No pleural effusions. The heart is normal in size. There is bibasilar interstitial thickening which has progressed. The upper lung zones are clear. IMPRESSION: Bibasilar interstitial thickening/opacities. This could be due to the low lung volumes or a developing pneumonia. CT SCAN OF THE ABDOMEN AND PELVIS WITHOUT IV CONTRAST CLINICAL HISTORY: Generalized abdominal pain. Fever. Elevated creatinine. COMPARISON STUDY: Abdominal CT dated 12/04/2018. TECHNIQUE: CT scan of the abdomen and pelvis is performed from the lung bases to the proximal femora. Images are reviewed in the axial, sagittal, and coronal planes. IV contrast was not administered for this examination due to poor renal function. Note that the examination is suboptimal without IV contrast. Examination is also degraded by motion artifact. A dose lowering technique was utilized adhering to the principles of ALARA. CT DOSE: 887.72 mGy.cm FINDINGS: Lung bases: The heart is normal in size and without pericardial effusion. Trace pleural effusions are noted. There is bibasilar scarring/atelectasis. No airspace consolidation is seen typical for pneumonia. There is a tiny hiatal hernia. Liver: The unenhanced liver is enlarged, measuring 19.8 cm in length. The liver demonstrates diffusely diminished attenuation consistent with hepatic steatosis. Fatty sparing is seen adjacent to gallbladder fossa. There is no intrahepatic biliary ductal dilatation. Gallbladder: Suspect tiny calcified gallstones. There is no CT evidence of acute cholecystitis. Spleen: Normal in size and attenuation. Pancreas: Unremarkable. Adrenal glands: A 2 cm left adrenal adenoma is unchanged. The right adrenal gland is normal in appearance. Kidneys: The unenhanced kidneys are normal in size and without hydronephrosis. There are no renal calculi identified. There is no evidence of contour deforming renal mass lesion. There is mild nonspecific bilateral perinephric stranding. Abdominal vasculature: There is advanced atherosclerotic calcification and mild ectasia of the abdominal aorta. Bowel: There is no bowel obstruction. Moderate fecal retention is seen throughout the colon. There are scattered colonic diverticula without CT evidence of acute diverticulitis. The appendix is well-visualized and normal. Peritoneum: There is no intraperitoneal free air or abdominal ascites. There is a small fat-containing umbilical hernia. Lymphadenopathy: None. Pelvic viscera: The prostate gland is enlarged and heterogeneous noting median lobe hypertrophy. The bladder wall is thickened and trabeculated indicating chronic outlet obstruction Skeletal structures: There is mild to moderate lumbosacral spondylosis. No lytic or blastic lesions are seen. IMPRESSION: 1. There is nonspecific bilateral perinephric stranding. Correlate with clinical findings and urinalysis. 2. Trace pleural effusions. 3. Suspect cholelithiasis. 4. No bowel obstruction. 5. Prostatomegaly with bladder wall thickening and trabeculation. This likely represents the sequelae of chronic outlet obstruction, and should also be correlated with urinalysis. 6. Hepatomegaly and hepatic steatosis. 7. Additional findings as above. Medications Administered ER Medications given: NSS 1L bolus x2 Cefepime 2g IV Ondansetron 4mg IV Promethazine 6.25mg IV ECG Indication: SOB/dyspnea Rate (beats per minute): 105 Rhythm: sinus tachycardia Findings: + LAFB; no acute ischemic change Comparison ECG Date: from (April 05, 2015) Change: the following changes noted (LAFB is new) Code Status & VTE Plan Code Status Full VTE Prophylaxis Plan VTE Prophylaxis will be ordered: Yes PG Care Time/CCT Total # of Minutes Spent Total Time Spent with Patient: Total time spent is greater than 50% in coordination of care (as documented) at patient's floor/unit and/or counseling patient: Coding Level of Care Code 72407 Initial Inpt Care Lvl 3 Diagnoses Sepsis A41.9; R65.20; N17.9 Acute renal failure type: unspecified Sepsis acute organ dysfunction status: with acute organ dysfunction Sepsis type: sepsis due to unspecified organism Severe sepsis acute organ dysfunction type: acute renal failure Severe sepsis shock status: without septic shock Acute dehydration E86.0 Vomiting R11.2 Nausea presence: with nausea Vomiting Intractability: non-intractable Vomiting type: unspecified Sleep apnea G47.30 Acid reflux disease K21.9 Hypertension I10 BPH (benign prostatic hyperplasia) N40.0 Hyperlipidemia E78.5 Acute kidney injury N17.9 (1) Sepsis Acute renal failure type: unspecified Sepsis acute organ dysfunction status: with acute organ dysfunction Sepsis type: sepsis due to unspecified organism Severe sepsis acute organ dysfunction type: acute renal failure Severe sepsis shock status: without septic shock Qualified Code(s): A41.9 - Sepsis, unspecified organism; R65.20 - Severe sepsis without septic shock; N17.9 - Acute kidney failure, unspecified (2) Vomiting Nausea presence: with nausea Vomiting Intractability: non-intractable Vomiting type: unspecified Qualified Code(s): R11.2 - Nausea with vomiting, unspecified
[2021-09-01 17:16] LABS: Lyme Ab IgG w/WB Rflx Negative (Negative); Lyme Ab IgM w/WB Rflx Negative (Negative)
[2021-09-01] MEDS ORDERED: ACETAMINOPHEN 325 MG TAB PO PRN (19:26)
[2021-09-01] MEDS ORDERED: PIPERACILL/TAZOBAC CONSULT ACTIVE PRN (19:26)
[2021-09-01] MEDS ORDERED: PIPERACILLIN/TAZOBACTAM 3.375 GM in DEXTROSE 5% 100 ML IV ONE (20:30)
[2021-09-01] MEDS: LACTATED RINGER'S 1,000 ML IV SCH ×2 (21:16→21:59)
[2021-09-01] MEDS ORDERED: CARBOHYDRATES FOR HYPOGLYCEMIA PO PRN (21:24)
[2021-09-01] MEDS ORDERED: GLUCOSE 40% GEL 15 GM TUBE PO PRN (21:24)
[2021-09-01] MEDS ORDERED: DEXTROSE 50% 50 ML SYRINGE IV PRN (21:24)
[2021-09-01] MEDS ORDERED: GLUCOSE 10 TABS/TUBE PO PRN (21:24)
[2021-09-01] MEDS ORDERED: GLUCAGON FOR INJ 1 MG VIAL SQ PRN (21:24)
--- NOTE | 2021-09-01 22:44 | Electrocardiogram Report ---
Test Reason : Blood Pressure : / mmHG Vent. Rate : 105 BPM Atrial Rate : 105 BPM P-R Int : 172 ms QRS Dur : 092 ms QT Int : 314 ms P-R-T Axes : 050 118 040 degrees QTc Int : 415 ms Sinus tachycardia Left posterior fascicular block Abnormal ECG When compared with ECG of 05-APR-2015 17:49, Left posterior fascicular block is now Present Confirmed by Kamron Cruz ([id number]) on 09/01/2021 10:44:06 PM Referred By: REFERRED SELF Confirmed By:Kamron Cruz
[2021-09-02] MEDS: PIPERACILLIN/TAZOBACTAM 3.375 GM in DEXTROSE 5% 100 ML IV SCH ×3 (01:19→17:22)
[2021-09-02] MEDS: LACTATED RINGER'S 1,000 ML IV SCH ×3 (04:00→15:14)
[2021-09-02] MEDS ORDERED: ONDANSETRON INJ 2 MG/ML 2 ML VIAL IV PRN (05:43)
[2021-09-02 06:36] LABS: Basophils # (auto) 0.01 K/uL (0-0.2); Basophils % (auto) 0.1 %; Hemoglobin 12.4 g/dL (14.0-18.0); Immature Granulocytes # (auto) 0.01 K/uL (0.00-0.02); Immature Granulocytes % (auto) 0.1 %; Lymphocytes # (auto) 0.42 K/uL (1.2-3.4); Lymphocytes % (auto) 5.9 %; Mean Corpuscular Hemoglobin 29.4 pg (25-34); Mean Corpuscular Hgb Conc 33.5 g/dL (32-36); Mean Corpuscular Volume 87.7 fL (80-100); Mean Platelet Volume 9.3 fL (7.4-10.4); Monocytes # (auto) 0.16 K/uL (0.11-0.59); Monocytes % (auto) 2.2 %; Neutrophils # (auto) 6.57 K/uL (1.4-6.5); Neutrophils % (auto) 91.7 %; Platelet Count 194 K/uL (130-400); RDW Standard Deviation 45.1 fL (36.4-46.3); Red Blood Count 4.22 M/uL (4.7-6.1); White Blood Count 7.17 K/uL (4.8-10.8)
[2021-09-02 06:51] LABS: INR 1.3 (0.9-1.1)
[2021-09-02 07:28] LABS: Albumin Globulin Ratio 0.7 (0.9-2); Albumin Level 2.3 gm/dl (3.4-5.0); Bilirubin,Total 1.4 mg/dl (0.2-1); Calcium 8.3 mg/dl (8.5-10.1); Creatinine Clr Calc Pharmacy 59.2 ml/min; Est GFR (African American) 54.6 ml/min; Est GFR (Non-African American) 47.1 ml/min; Globulin 3.3 gm/dl (2.5-4.0); Total Protein 5.6 gm/dl (6.4-8.2)
[2021-09-02] MEDS: INSULIN ASPART 100 UNITS/ML 3 ML PEN SC SCH ×4 (07:51→22:38)
[2021-09-02] MEDS: CYANOCOBALAMIN 500 MCG TABLET (VITAMIN B-12) PO SCH (08:10)
[2021-09-02] MEDS: CHOLECALCIFEROL 1,000 UNITS 25 MCG TAB PO SCH (08:11)
[2021-09-02] MEDS ORDERED: ENOXAPARIN INJ 40 MG/0.4 ML SYR SQ SCH (09:00)
[2021-09-02 13:11] LABS: Albumin Level 2.6 gm/dl (3.4-5.0); Bilirubin Direct 0.9 mg/dl (0-0.2); Bilirubin,Total 1.3 mg/dl (0.2-1); Total Protein 6.2 gm/dl (6.4-8.2)
[2021-09-02 13:18] LABS: CoV2 Total Antibody Negative (Negative)
[2021-09-02 13:29] LABS: Hepatitis B Surf Ag Rflx Conf Neg (Neg)
[2021-09-02 13:53] LABS: Adenovirus PCR Not Detected (NotDetected); Bordetella parapertussis PCR Not Detected (NotDetected); Bordetella pertussis PCR Not Detected (NotDetected); Chlamydia pneumoniae PCR Not Detected (NotDetected); Coronavirus 229E PCR Not Detected (NotDetected); Coronavirus CoV-2 (COVID19)PCR Not Detected (NotDetected); Coronavirus HKU1 PCR Not Detected (NotDetected); Coronavirus NL63 PCR Not Detected (NotDetected); Coronavirus OC43PCR Not Detected (NotDetected); Human Metapneumovirus PCR Not Detected (NotDetected); Influenza A PCR Not Detected (NotDetected); Influenza B PCR Not Detected (NotDetected); Mycoplasma pneumoniae PCR Not Detected (NotDetected); Parainfluenza Virus 1 PCR Not Detected (NotDetected); Parainfluenza Virus 2 PCR Not Detected (NotDetected); Parainfluenza Virus 3 PCR Not Detected (NotDetected); Parainfluenza Virus 4 PCR Not Detected (NotDetected); Respiratory Syncytial VirusPCR Not Detected (NotDetected); Rhinovirus/Enterovirus PCR Not Detected (NotDetected)
[2021-09-02 13:57] LABS: Hepatitis C IgG 13Yrs+Old_Rflx Neg (Neg)
--- NOTE | 2021-09-02 14:03 | Hospitalist Progress Note ---
Date of Service September 02, 2021 Assessment & Plan (1) Sepsis syndrome: Plan: 66-year-old white male with a PMHx of SUSIE, HLD, NIDDM, HTN, and pulmonary hypertension -Presented to the ED with sepsis syndrome (leukocytosis 13.7, hypotension 89/67, fever 102.38) -Exact etiology unclear. Patient recently had dental work. Could have prostatitis. CXR does show bibasilar opacities which could be concerning for pneumonia; however, he does not have any respiratory symptoms. IMPRESSION: Bibasilar interstitial thickening/opacities. This could be due to the low lung volumes or a developing pneumonia. - CT of A/P: IMPRESSION: 1. There is nonspecific bilateral perinephric stranding. Correlate with clinical findings and urinalysis. 2. Trace pleural effusions. 3. Suspect cholelithiasis. 4. No bowel obstruction. 5. Prostatomegaly with bladder wall thickening and trabeculation. This likely represents the sequelae of chronic outlet obstruction, and should also be correlated with urinalysis. 6. Hepatomegaly and hepatic steatosis. 7. Additional findings as above. -He did come in with vomiting and reports some back pain. Does have cholelithiasis seen on CT scan. With his hyperbilirubinemia and transaminitis, will obtain a RUQ U/S not only to assess the gallbladder but the ductal system -His Covid was negative. Tickborne diseases being ruled out. Anaplasmosis and Lyme screens negative -Given the hyperbilirubinemia, will obtain a cytomegalovirus IgM/IgG and an acute hepatitis panel. -In addition, will obtain a bio fire along with influenza A/B screen -At any rate, continue IV hydration and empiric antibiotic therapy until source can potentially be identified. -Could be from dental work or prostatitis. Urinalysis is not grossly infected and he does not have any mouth pain. No obvious abscess identified on exam -seems to be responding favorably: WBC and lactic acid normal. BP and HR improved. Still febrile. -continue to monitor and follow closely. Currently, is HD stable without the need for pressor support. (2) Acute kidney injury: Plan: -Suspect secondary to sepsismild ATN from hypoperfusion given hypotension seen upfront in the presence of sepsis syndrome -Continue IV hydration -Renal function improving (creatinine 1.9 upon presentation. Currently 1.5) -Continue to hold nephrotoxic agents (such as Metformin (3) Transaminitis: Plan: -Exact etiology unclear. May be secondary to sepsis syndrome -I have ordered an RUQ U/S and subsequent labs (CMV, EBV, acute hepatitis panel) to help differentiate if there is something underlying that is potentially driving his sepsis or if the hyperbilirubinemia and transaminitis is simply related to hypoperfusion from sepsis -Hold patient's Crestor (4) Hyperbilirubinemia: Plan: -See above as outlined -Hold Crestor as outlined above (5) Elevated troponin: Plan: -We will repeat a troponin to determine if uptrending or downtrending -Patient without ST/T wave changes and denies chest pain/shortness of breath -Suspect supply/demand ischemia in the setting of sepsis syndrome (6) Hypertension: Plan: -Continue to hold amlodipine as patient presented with marginal hypotension in the setting of sepsis. BP currently 120/65 Plan: -Patient was ordered Lovenox for DVT prophylaxis. I will hold this for now as patient's INR was 1.4 when he came in. This seems to coincide with some potential auto anticoagulation. Uncertain if this is from sepsis or an underlying liver issue. -Patient did receive IV hydration overnight. We will continue this/reorder -Plan of care to be discussed with Dr. Barton. Further orders as warranted. Admission and Anticipated Discharge Date Admission Date: September 01, 2021 Subjective Patient seen on daily rounds today. He is a 66-year-old white male with a past medical history of [id number] diabetes mellitus, hypertension, pulmonary hypertension, and hyperlipidemia, and obstructive sleep apnea. He was hospitalized yesterday with sepsis syndrome. He presented with marginal hypotension (89/67, a fever of 102.38, leukocytosis of 13.7, lactic acidemia of 3.1 and a significantly elevated procalcitonin of 39.49. In addition, his creatinine was slightly elevated at 1.9 and his total bilirubin and LFTs are elevated. INR slightly up at 1.4. He does not take any anticoagulation therapy and has no known liver disease. Blood pressure responded to IV fluids. He was hospitalized and empirically started on Zosyn/daptomycin. Obvious source of infection is not well identified. Chest x-ray does show bibasilar opacities which could be concerning for pneumonia; however, patient denies cough or shortness of breath. His urinalysis is not grossly infected. He denies dysuria, hematuria, urinary frequency. His only complaint was vomiting for approximately 2 days. This occurred just after having 2 wisdom teeth extracted. He is not having any unusual mouth pain. He does report some lower back pain. Denies abdominal pain. No rashes. No history of tick bites. His Anaplasma screen was negative. PCR pending. Lyme titer negative. Babesiosis is pending. Covid test negative Thus far, patient's white blood cell count has normalized. Creatinine and LFTs are downtrending. Repeat lactic acid level improved at 2.0. Overall, patient reports that he still feels ill but is not having any nausea or vomiting. Troponin was slightly elevated at 0.082. EKG shows a left posterior fascicular block without acute ST/T wave changes. He denies chest pain, shortness of breath, diaphoresis or arm pain. Review of Systems Review of Systems: All systems reviewed and are unremarkable except as noted in HPI and below Denies headache, nasal congestion, sore throat, cough, chest pain, shortness of breath, palpitations, orthopnea, PND, abdominal pain, nausea, vomiting, diarrhea, constipation, dysuria, hematuria, frequency, back pain, joint pain or swelling, easy bruising or bleeding, skin lesions or rashes. Physical Exam Physical Exam: General: Resting comfortably in his hospital bed. Does appear to be ill but not toxic. NAD. HEENT: Head is AT/NC buccal mucosa is moist and pink Neck: No JVD. Negative hepatojugular reflex Cardiac: Very distant heart sounds but appears RRR Lungs: Breathing comfortably on 2 L of supplemental oxygen. No accessory muscle use or labored breathing. No wheezes, rales or rhonchi Abdomen: Normoactive X4. Soft and nontender in all quadrants. Negative Alcazar sign Extremities: No peripheral clubbing cyanosis or edema Neuro: A&O X4 cranial nerves II through XII are grossly intact no focal neuro deficits Skin: No obvious skin lesions or rashes Psych: Appropriate affect pleasant and cooperative Results & Data Results & Data ([facility]) Vital Signs (Past 12 Hours) Vital Signs Temp Pulse Pulse Resp BP Pulse Ox 09/02/21 11:03 37.6 C H 98 H 20 124/74 97 09/02/21 08:11 37.2 C 86 20 120/65 97 09/02/21 08:00 84 09/02/21 03:59 37.5 C 84 18 101/62 95 Laboratory Results 09/02/21 06:10 09/02/21 06:10 PG Care Time/CCT Total # of Minutes Spent Total Time Spent with Patient: Total time spent is greater than 50% in coordin ation of care (as documented) at patient's floor/unit and/or counseling patient: [place] [address] Subseq Hosp Care Lvl 3 Patient Type Established History Comprehensive Exam Comprehensive Medical Decision Making High Complexity Diagnoses Sepsis syndrome Acute kidney injury N17.9 Transaminitis R74.01 Hyperbilirubinemia E80.6 Elevated troponin R77.8 Hypertension I10
--- NOTE | 2021-09-02 15:10 | Ultrasound Report ---
ABDOMINAL ULTRASOUND, RIGHT UPPER QUADRANT HISTORY: Fever. Generalized abdominal pain. ?cholecystitis. COMPARISON: Abdomen and pelvis CT 09/01/2021. FINDINGS: Pancreas: The pancreatic tail is obscured by overlying bowel gas. The remaining portions of the pancr eas are within normal limits. Liver: The liver is echogenic consistent with fatty change. 21 cm in length. Gallbladder: No gallbladder wall thickening. No gallstones. CBD: 5 mm. Right kidney: No hydronephrosis. Trace perinephric edema. IMPRESSION: 1. Normal gallbladder. No gallstones. 2. Hepatomegaly demonstrating fatty change. ACT 112: Negative or not required by law. Electronically signed by: Clinton Rob M.D. 09/02/2021 3:09 PM
[2021-09-02 15:55] LABS: Estimated Average Glucose 126 mg/dl
[2021-09-02] MEDS ORDERED: DAPTOmycin 450 MG in SYRINGE 0 ML IV SCH (16:00)
[2021-09-03] MEDS: PIPERACILLIN/TAZOBACTAM 3.375 GM in DEXTROSE 5% 100 ML IV SCH ×2 (02:24→09:49)
[2021-09-03] MEDS: LACTATED RINGER'S 1,000 ML IV SCH (03:49)
[2021-09-03 07:03] LABS: Basophils # (auto) 0.01 K/uL (0-0.2); Basophils % (auto) 0.1 %; Eosinophils # (auto) 0.05 K/uL (0-0.5); Eosinophils % (auto) 0.7 %; Hematocrit (blood only) 36.1 % (42-52); Hemoglobin 11.9 g/dL (14.0-18.0); Immature Granulocytes # (auto) 0.01 K/uL (0.00-0.02); Immature Granulocytes % (auto) 0.1 %; Lymphocytes # (auto) 0.63 K/uL (1.2-3.4); Lymphocytes % (auto) 9.1 %; Mean Corpuscular Hemoglobin 29.2 pg (25-34); Mean Corpuscular Volume 88.5 fL (80-100); Monocytes # (auto) 0.41 K/uL (0.11-0.59); Monocytes % (auto) 5.9 %; Neutrophils # (auto) 5.85 K/uL (1.4-6.5); Neutrophils % (auto) 84.1 %; Platelet Count 176 K/uL (130-400); RDW Coefficient of Variation 13.8 % (11.5-14.5); RDW Standard Deviation 45.2 fL (36.4-46.3); Red Blood Count 4.08 M/uL (4.7-6.1); White Blood Count 6.96 K/uL (4.8-10.8)
[2021-09-03 07:07] LABS: Prothrombin Time 10.4 Seconds (9.0-12.0)
[2021-09-03 07:34] LABS: BUN Creatinine Ratio 11.7 (10-20); Calcium 8.5 mg/dl (8.5-10.1); Creatinine Clr Calc Pharmacy 80.9 ml/min; Est GFR (African American) 80.1 ml/min; Est GFR (Non-African American) 69.1 ml/min; Magnesium 2.3 mg/dl (1.8-2.4); Potassium 3.7 mmol/L (3.5-5.1)
[2021-09-03] MEDS: INSULIN ASPART 100 UNITS/ML 3 ML PEN SC SCH ×4 (07:51→20:44)
[2021-09-03] MEDS: CYANOCOBALAMIN 500 MCG TABLET (VITAMIN B-12) PO SCH (08:51)
[2021-09-03] MEDS: CHOLECALCIFEROL 1,000 UNITS 25 MCG TAB PO SCH (08:51)
[2021-09-03] MEDS ORDERED: ROSUVASTATIN CALCIUM 5 MG TAB PO SCH (09:00)
--- NOTE | 2021-09-03 17:01 | Hospitalist Progress Note ---
Date of Service September 03, 2021 Assessment & Plan (1) Sepsis syndrome: Plan: 66-year-old white male with a PMHx of SUSIE, HLD, NIDDM, HTN, and pulmonary hypertension -Presented to the ED with sepsis syndrome (leukocytosis 13.7, hypotension 89/67, fever 102.38) -Did have multisystem organ involvement (cardiac, liver, renal) -Exact etiology initially unclear. -Was initially started on daptomycin and Zosyn empirically -Urinalysis not grossly infected -Urine culture and blood cultures negative -CXR showed bibasilar opacities which could be concerning for pneumonia versus atelectasis; however, he did not have any respiratory symptoms -CTA of the abdomen and pelvis showed cholelithiasis without acute intra- abdominal process -Right upper quadrant ultrasound obtained due to the hyperbilirubinemia and presentation of vomiting. This was negative for acute process. Fatty liver noted -His Covid was negative. Tickborne diseases being ruled out. Anaplasmosis and Lyme screens negative -Bio fire obtained and so far all coming back negative -With digital rectal exam today showing a tender and boggy prostate along with his elevated PSA of 39this all seems very consistent with acute prostatitis despite his normal urinalysis -At this time, will de-escalate his antibiotic regimen to Cipro and continue to monitor with hopeful discharge within the next 24 to 48 hours -need 20 days of antibiotic therapy at minimum. Could argue 6 weeks given severe sepsis with multisystem organ involvement (2) Acute prostatitis: Plan: -Initially source of sepsis syndrome cannot be identified; however, with more thorough examination and evaluation source seems consistent with acute prostatitis (3) Acute kidney injury: Plan: -Suspect secondary to sepsismild ATN from hypoperfusion given hypotension seen upfront in the presence of sepsis syndrome -Renal function has since normalized (creatinine 1.9 upon presentation and down to 1.1 today) -Continue holding Metformin and other nephrotoxic agents -Renally adjust medications when necessary (4) Transaminitis: Plan: -Right upper quadrant ultrasound showing fatty liver but no acute pathology -Likely due to sepsis syndrome and perhaps hypoperfusion/multisystem organ involvement -Patient does take Crestor routinely which is being held. Would continue holding for now -CMV, acute hepatitis panel, and EBV ordered yesterday. All pending but suspect will be negative -Anaplasmosis screen negative. PCR pending. -Lyme titer negative. -Babesiosis screen pending (5) Hyperbilirubinemia: Plan: -See above as outlined -Hold Crestor as outlined above (6) Elevated troponin: Plan: -We will repeat a troponin to determine if uptrending or downtrending -Patient without ST/T wave changes and denies chest pain/shortness of breath -Suspect supply/demand ischemia in the setting of sepsis syndrome (7) Hypertension: Plan: -Continue to hold amlodipine as patient presented with marginal hypotension in the setting of sepsis. BP currently 118/70 Plan: -Overall, patient showing favorable response -Transition antibiotic therapy as outlined above -Plan of care discussed with Dr. Barton -Possible discharge within the next 24 to 48 hours Admission and Anticipated Discharge Date Admission Date: September 01, 2021 Subjective Patient seen on daily rounds today. Overall he reports that he is feeling signi ficantly better compared to yesterday. He has since defervesced and has remained hemodynamically stable. His white blood cell count has normalized. He is tolerating oral intake without any nausea or vomiting. Still feels weak but overall improved. His right upper quadrant ultrasound was unremarkable for acute disease Was asked yesterday if he was having any dysuria, hematuria or frequency which he denied. I went into more detail today trying to find an etiology to his sepsis syndrome and was suspicious that he may have prostatitis. He denies dribbling, urinary retention, or the inability to empty his bladder Review of Systems Review of Systems: All systems reviewed and are unremarkable except as noted in HPI and below Denies fevers, chills, headache, nasal congestion, sore throat, cough, chest pain, shortness of breath, palpitations, orthopnea, PND, abdominal pain, nausea, vomiting, diarrhea, constipation, dysuria, hematuria, frequency, back pain, joint pain or swelling, easy bruising or bleeding, skin lesions or rashes. Physical Exam Physical Exam: General: Resting comfortably in his hospital bed. He is currently looking much better. Does not appear ill or toxic. NAD. HEENT: Head is AT/NC buccal mucosa is moist and pink Neck: No JVD. Negative hepatojugular reflex Cardiac: RRR without M/G/R Lungs: CTA without W/R/R Abdomen: Normoactive X4. Soft and nontender in all quadrants. Rectal: Exquisitely tender prostate noted on digital rectal exam. Prostate large and boggy Extremities: No peripheral clubbing cyanosis or edema Neuro: A&O X4 cranial nerves II through XII are grossly intact no focal neuro deficits Skin: No obvious skin lesions or rashes Psych: Appropriate affect pleasant and cooperative Results & Data Results & Data ([facility]) Vital Signs (Past 12 Hours) Vital Signs Temp Pulse Pulse Resp BP Pulse Ox 09/03/21 15:17 37.5 C 73 18 118/70 94 09/03/21 11:05 37 C 80 22 132/72 96 09/03/21 08:00 36.8 C 73 88 18 124/63 95 Laboratory Results 09/03/21 06:23 09/03/21 06:23 Total bilirubin: 1.3 AST: 114 ALT: 126 PSA: 39. Was 2.21 May 2021 Diagnostic Findings RUQ ultrasound: IMPRESSION: 1. Normal gallbladder. No gallstones. 2. Hepatomegaly demonstrating fatty change. PG Care Time/CCT Total # of Minutes Spent Total Time Spent with Patient: Total time spent is greater than 50% in coordination of care (as documented) at patient's floor/unit and/or counseling patient: Coding Level of Care Code 92466 Subseq Hosp Care Lvl 3 Diagnoses Sepsis syndrome Acute kidney injury N17.9 Transaminitis R74.01 Hyperbilirubinemia E80.6 Elevated troponin R77.8 Hypertension I10 Acute prostatitis N41.0
[2021-09-03] MEDS: CIPROFLOXACIN / D5W 400 MG/200 ML BAG IV SCH (17:09)
[2021-09-04] MEDS: CIPROFLOXACIN / D5W 400 MG/200 ML BAG IV SCH (06:05)
[2021-09-04 08:22] LABS: Basophils # (auto) 0.02 K/uL (0-0.2); Basophils % (auto) 0.4 %; Eosinophils # (auto) 0.13 K/uL (0-0.5); Eosinophils % (auto) 2.6 %; Hemoglobin 12.6 g/dL (14.0-18.0); Immature Granulocytes # (auto) 0.04 K/uL (0.00-0.02); Immature Granulocytes % (auto) 0.8 %; Lymphocytes # (auto) 0.97 K/uL (1.2-3.4); Lymphocytes % (auto) 19.2 %; Mean Corpuscular Hemoglobin 29.3 pg (25-34); Mean Corpuscular Hgb Conc 33.2 g/dL (32-36); Mean Corpuscular Volume 88.4 fL (80-100); Mean Platelet Volume 9.5 fL (7.4-10.4); Monocytes # (auto) 0.33 K/uL (0.11-0.59); Monocytes % (auto) 6.5 %; Neutrophils # (auto) 3.56 K/uL (1.4-6.5); Neutrophils % (auto) 70.5 %; Platelet Count 180 K/uL (130-400); RDW Coefficient of Variation 13.5 % (11.5-14.5); RDW Standard Deviation 43.6 fL (36.4-46.3); White Blood Count 5.05 K/uL (4.8-10.8)
[2021-09-04 08:42] LABS: Albumin Level 2.6 gm/dl (3.4-5.0); BUN Creatinine Ratio 10.5 (10-20); Calcium 8.3 mg/dl (8.5-10.1); Creatinine Clr Calc Pharmacy 92.9 ml/min; Est GFR (African American) 96.8 ml/min; Est GFR (Non-African American) 83.6 ml/min; Potassium 3.5 mmol/L (3.5-5.1)
[2021-09-04] MEDS: INSULIN ASPART 100 UNITS/ML 3 ML PEN SC SCH ×2 (08:50→12:06)
[2021-09-04] MEDS: CYANOCOBALAMIN 500 MCG TABLET (VITAMIN B-12) PO SCH (08:50)
[2021-09-04 08:51] LABS: Albumin Globulin Ratio 0.7 (0.9-2); Bilirubin,Total 0.7 mg/dl (0.2-1); Globulin 3.8 gm/dl (2.5-4.0); Total Protein 6.4 gm/dl (6.4-8.2)
[2021-09-04] MEDS ORDERED: ENOXAPARIN INJ 40 MG/0.4 ML SYR SQ SCH (09:00)
--- NOTE | 2021-09-04 16:38 | Discharge Summary ---
Date of Service September 04, 2021 Admission HPI Per Admitting Provider Leroy Ceja is a 66 year old male who presents to the ER with chills, nausea, vomiting and generalized weakness. He reports having a tooth pulled yesterday and was put on amoxicillin and codeine. He started having nausea and vomiting yesterday which was followed by chills, generalized body aches. He has not managed to keep down any liquids of solids since yesterday. No shortness of breath, nasal congestion, cough or chest pain. In the ER CXR shows bibasilar interstitial opacities, CT A/P shows non-specific perinephric stranding, prostatomegaly with bladder wall thickening and trabeculation, UA/micro negative for nitrites, bacteria and LE. LFTs other than ALP were elevated but no abdominal pain or imaging to suggest liver is the source of infection. WBC elevated and procalcitonin significantly elevated. He was referred to medicine for admission and ongoing management of sepsis and dehydration. Principal Diagnosis 1. Sepsis Syndrome with multi-organ involvement (heart, Liver, kidney) 2. elevated troponin- supply/demand ischemia d/t sepsis 3. LACHELLE- resolved. d/t sepsis 4. Acute Liver Injury (secondary to sepsis-- hyperbilirubinemia, transaminitis and elevated INR)-- all improving/nearly resolved 6. Acute Prostatitis- cause of sepsis Discharge Exam General: Resting comfortably in his hospital bed. He is currently looking much better. Does not appear ill or toxic. NAD. HEENT: Head is AT/NC buccal mucosa is moist and pink Neck: No JVD. Negative hepatojugular reflex Cardiac: RRR without M/G/R Lungs: CTA without W/R/R Abdomen: Normoactive X4. Soft and nontender in all quadrants. on 09/03/21: Rectal: Exquisitely tender prostate noted on digital rectal exam. Prostate large and boggy Extremities: No peripheral clubbing cyanosis or edema Neuro: A&O X4 cranial nerves II through XII are grossly intact no focal neuro deficits Skin: No obvious skin lesions or rashes Psych: Appropriate affect pleasant and cooperative Discharge Data Allergies Allergy/AdvReac Type Severity Reaction Status Date / Time bee venom protein (honey bee) Allergy Unknown . Verified 09/01/21 14:58 atorvastatin AdvReac Unknown Verified 09/01/21 14:58 pravastatin AdvReac Unknown Verified 09/01/21 14:58 Consultations 09/01/21 14:38 ED Decision to Admit Stat 09/04/21 11:47 Consult [employer] employment recruiter Routine -to refer to urology Ordered Studies 09/01/21 14:33 CT abd pelvis wo con Stat IMPRESSION: 1. There is nonspecific bilateral perinephric stranding. Correlate with clinical findings and urinalysis. 2. Trace pleural effusions. 3. Suspect cholelithiasis. 4. No bowel obstruction. 5. Prostatomegaly with bladder wall thickening and trabeculation. This likely represents the sequelae of chronic outlet obstruction, and should also be correlated with urinalysis. 6. Hepatomegaly and hepatic steatosis. 7. Additional findings as above. 09/02/21 15:00 US gallbladder Urgent IMPRESSION: 1. Normal gallbladder. No gallstones. 2. Hepatomegaly demonstrating fatty change. Hospital Course (1) Sepsis syndrome: 66-year-old white male with a PMHx of SUSIE, HLD, NIDDM, HTN, and pulmonary hypertension -Presented to the ED with sepsis syndrome (leukocytosis 13.7, hypotension 89/67, fever 102.38) -Did have multisystem organ involvement (cardiac, liver, renal) -Exact etiology initially unclear. -Was initially started on daptomycin and Zosyn empirically -Urinalysis not grossly infected -Urine culture and blood cultures negative -CXR showed bibasilar opacities which could be concerning for pneumonia versus atelectasis; however, he did not have any respiratory symptoms -CTA of the abdomen and pelvis showed cholelithiasis without acute intra- abdominal process -Right upper quadrant ultrasound obtained due to the hyperbilirubinemia and presentation of vomiting. This was negative for acute process. Fatty liver noted -His Covid was negative. Tickborne diseases being ruled out. Anaplasmosis and Lyme screens negative -Bio fire obtained and so far all coming back negative (including influenza, parainfluenza, RSV, rhinovirus, SARS PCR) -Acute hepatitis panel obtained and pending -Patient showed clinical response to empiric antibiotic therapy but no source had not been identified -On 09/03, rectal exam done showing an exquisitely tender and boggy prostate. PSR drawn and elevated at 39. Source of sepsis thought to be related to prostatitis -Antibiotic therapy transition to Cipro. Will need 6 weeks given associated sepsis -Seen on daily rounds 09/04. White blood cell count normal. Afebrile and hemodynamically stable. Renal function normal. Bilirubin and INR normal. AST/ ALT downtrending and near normal. -At this time, I feel that he is medically and hemodynamically stable for discharge home with continued antibiotics and follow-up to see urology (2) Acute prostatitis: -Initially source of sepsis syndrome cannot be identified; however, with more thorough examination and evaluation source seems consistent with acute prostatitis (3) Acute kidney injury: -Suspect secondary to sepsismild ATN from hypoperfusion given hypotension seen upfront in the presence of sepsis syndrome -Renal function has since normalized (creatinine 1.9 upon presentation and down to 1.1 today) -Metformin held initially -Creatinine back to baseline (0.9) -Okay to resume Metformin upon discharge (4) Transaminitis: -Right upper quadrant ultrasound showing fatty liver but no acute pathology -Likely due to sepsis syndrome and perhaps hypoperfusion/multisystem organ involvement -Patient does take Crestor routinely which is being held. Would continue holding for now (consider resumption within the next week or 2) -CMV, acute hepatitis panel, and EBV ordered yesterday. All pending but suspect will be negative -Anaplasmosis screen negative. PCR pending. -Lyme titer negative. -Babesiosis screen pending (5) Hyperbilirubinemia: -See above as outlined -Hold Crestor as outlined above (6) Elevated troponin: -0.082 upon presentation but subsequent troponins were negative -No EKG changes -No chest pain -Likely supply/demand ischemia from sepsis and multisystem organ involvement -Consider cardiology referral as outpatient (7) Hypertension: -Continue to hold amlodipine as patient presented with marginal hypotension in the setting of sepsis. -ok to resume upon d/c - D/C to home with abx - follow up with urology Total Time Total Time Spent Total Time Spent (In Minutes): 60 Discharge Plan Discharge Items Patient Disposition: Home - Home Health Services Reason For Visit: SEPSIS Discharge Diagnosis: 1. Acute Sepsis with Multi-organ Involvement (Heart, Liver, Kidney)-- secondary to prostatitis 2. Acute Prostatitis Condition on Discharge: Serious Activity: Resume your previous activity Non-emergency contact: Primary Care Provider and Urologist Call non-emergency contact if: you have any medication questions, your symptoms worsen and your temperature is above 101 Follow-up/Referrals: Haritha Mckoy MD [Primary Care Provider] - Diet: Carb Consistent or DM2 Addtl Attending Provider Instructions: -You presented to the hospital with sepsis secondary to infection -Initially, exact source was unclear but was later found to be coming from your prostate (acute prostatitis) -You did have heart, liver, and kidney involvement but your labs are all significantly improved and nearly back to baseline -You need to complete a full 6 weeks of oral antibiotic therapy --Ciprofloxacin 500 mg 1 tablet by mouth twice daily X 6 weeks -Recommend follow-up with a urologist. A nurse navigator should be calling you tomorrow or Sunday with an appointment date/time -It is okay to go back on your Metformin but I advise holding your Crestor (rosuvastatin) X 1 week to allow your liver function studies to continue to improve -would hold off on Tylenol/Tylenol related products and Alcohol for now (again, to allow time for your liver to funny recover-- labs are almost normal at this time) -Follow-up with your PCP within 7 to 10 days -Return to the ED for any new or worsening symptoms Pending Studies at Discharge: Yes Studies:: biofire, CMD, EBV, acute hepatitis panel Stand-Alone Forms: [facility] Medications and DC Order Prescriptions: New ciprofloxacin HCl 500 mg tablet 500 mg PO BID 42 Days Qty: 84 RF: 0 Continued mecobalamin (vitamin B12) 1,000 mcg tablet,chewable 1,000 mcg PO DAILY Qty: 90 RF: 3 amlodipine 10 mg tablet 10 mg PO DAILY Qty: 90 RF: 3 metformin 500 mg tablet 500 mg PO BID Qty: 180 RF: 3 epinephrine 0.3 mg/0.3 mL auto-injector 0.3 mg IM UD PRN (Reason: Allergic Reaction) Qty: 1 RF: 0 sildenafil (pulm.hypertension) 20 mg tablet 20 mg PO ONCE PRN (Reason: sexual activity) Qty: 60 RF: 6 cholecalciferol (vitamin D3) [Vitamin D3] 125 mcg (5,000 unit) Tablet 125 mcg PO DAILY RF: 0 Discontinued amoxicillin 500 mg capsule 500 mg PO TID RF: 0 acetaminophen-codeine 300-30 mg tablet 1 tab PO UD RF: 0 rosuvastatin 5 mg tablet 5 mg PO Q OTHER DAY RF: 0 Discharge Orders: Discharge Order (Routine); Ordered 09/04/21 Ordered By: Kathia Milligan/Other Patient Handouts: Prediabetes, 5 Steps for Eating Healthier, Bacterial Prostatitis, Exercise: Why Fitness Matters, Sepsis Admission Data Admit Date/Time: 09/01/21 17:05 Attending Provider: Oscar Barton Admit Provider: Jose M Michaels Primary Care Provider: Haritha Mckoy V. Other Providers: Jose M Michaels Other Interventions: Discharge Summary Assessment (RN) Last Done: 09/04/21 12:15 Supervising Physician Co-Signing Physician Notes Patient seen and examined on the day of discharge. I agree with the discharge summary by Kathia BARRON. I have reviewed the chart including labs, imaging and plans for discharge. patient had great response to antibiotics no fever, vitals stable, all labs are improving or back to normal - Sepsis due to UTI, suspected prostatitis as prostate very tender: complete 6 week course of Cipro - LACHELLE, acute liver injury, elevated troponin: all related to sepsis, though he never had shock renal function at baseline after IV fluids, making urine LFT nearly back to normal, trending in right direction Coding Level of Care Code D/C DAY MANAGEMENT >30 MINS Diagnoses Sepsis syndrome Acute prostatitis N41.0 Acute kidney injury N17.9 Transaminitis R74.01 Hyperbilirubinemia E80.6 Elevated troponin R77.8 Hypertension I10 Time Spent (min) 60
[2021-09-06 13:11] LABS: CMV IgM Antibody <30.00 AU/mL; Epstein Barr Virus Early Ag Ab <9.00 U/mL; Hepatitis A Antibody IgM NON-REACTIVE (NON-REACTIVE); Hepatitis B Core Antibody IgM NON-REACTIVE (NON-REACTIVE)
[2021-09-07 11:11] LABS: Babesia microti DNA Not Detected (Not Detected)
--- NOTE | 2021-09-09 13:42 | Coding Query ---
CODING QUERY To promote full compliance with coding requirements relating to patient care, provider participation is requested in all cases of rear admiral uncertainty. Please assist us with the question(s) below: Coding Question(s): The diagnoses below were documented on discharge but not anywhere else in the account. Please clarify below: ACUTE LIVER DISEASE ( ) Diagnosed and POA ( ) Diagnosed and not POA (x ) Ruled Out ( ) Other Please Explain: UTI ( x) Diagnosed and POA ( ) Diagnosed and not POA ( ) Ruled Out ( ) Other Please Explain: Thank you John Catalan Principal Diagnosis: "that condition established after study, to be chiefly responsible for occasioning the admission of the patient to the hospital for care." Co-Existing Principal Diagnosis: "when two or more diagnoses equally meet the criteria for principal diagnosis as determined by the circumstances of admission, diagnostic work up, and/or therapy provided, and the Alphabetic Index, Tabular List, or another coding guideline does not provide sequencing direction, any one of the diagnoses may be sequenced first." "When the physician has documented what appears to be a current diagnosis in the body of the record, but has not included the diagnosis in the final diagnostic statement, the physician should be asked whether the diagnosis should be added." ([facility] 2 QTR90. p3-4) YONI
--- NOTE | 2021-09-09 13:47 | Coding Query ---
SEPSIS To promote full compliance with coding requirements relating to patient care, physician participation is requested in all cases of trucksmith uncertainty. Please assist us with the question(s) below: In responding to this query, please exercise your independent professional judgement. The fact that a question is asked does not imply that any particular answer is desired or expected. We appreciate your clarification on this issue. The medical record reflects the following clinical findings: Body temperature of >38.3 C(101 F) on 09/01, pulse >90/minute, respirations >20/minute on 09/01, WBC count >12,000 on 09/01, and elev. lactate level. Sepsis Syndrome is documented on discharge. Please clarify below: ___ () Sepsis Specify Organism Specify Associated Condition/Diagnosis () Present on Admission () Not present on admission () Unable to clinically determine (x) Severe Sepsis (Sepsis associated with acute organ dysfunction): acute kidney injury, hypotension Specify Organism - not identified due to likely source of prostatitis, difficult to culture Specify Associated Condition/Diagnosis (x) Present on Admission () Not present on admission () Unable to clinically determine () Septic Shock (Severe sepsis with acute circulatory failure, unexplained by other causes) () Present on Admission () Not present on admission () Unable to clinically determine () Other, patient has: Thank You, John Catalan, [facility] JESSICAD
--- NOTE | 2021-09-09 13:59 | Coding Query ---
CODING QUERY To promote full compliance with coding requirements relating to patient care, provider participation is requested in all cases of interactive media marketing director uncertainty. Please assist us with the question(s) below: Coding Question(s): Acute Kidney Injury suspect secondary to Sepsis-mild ATN is documented. Please clarify below: (x ) Patient with Acute Kidney Injury ( ) Patient with Acute Tubular Necrosis ( ) Other Please Explain: Thank you John Hossein Principal Diagnosis: "that condition established after study, to be chiefly responsible for occasioning the admission of the patient to the hospital for care." Co-Existing Principal Diagnosis: "when two or more diagnoses equally meet the criteria for principal diagnosis as determined by the circumstances of admission, diagnostic work up, and/or therapy provided, and the Alphabetic Index, Tabular List, or another coding guideline does not provide sequencing direction, any one of the diagnoses may be sequenced first." "When the physician has documented what appears to be a current diagnosis in the body of the record, but has not included the diagnosis in the final diagnostic statement, the physician should be asked whether the diagnosis should be added." ([facility] 2 QTR90. p3-4) YONI
== END 2021-09-04 13:25 | disposition home or self-care (01) | DRG 872 ==
LOC: ED 12:04 → SUATTDRO 17:05 → 2S 17:05

== ENCOUNTER 2021-10-15 18:37 | Observation (INO) ==
--- NOTE | 2021-10-15 18:49 | Emergency Department Note ---
Impression & Plan Fever, Chest pain, LACHELLE (acute kidney injury) ED Provider Note Provider: Byron Leon MD DATE OF SERVICE: 10/15/2021 CHIEF COMPLAINT: Headache, nausea, dizzy, weakness HISTORY OF PRESENT ILLNESS: Patient is a 66-year-old gentleman hospitalization 6 weeks ago for sepsis and diagnosed with prostatitis. Patient presents today complaining of onset of dizziness, headache, weakness, and nausea today. Patient finished Cipro antibiotics just this afternoon for the prostatitis. Patient has been vaccinated for Covid with [employer] in the spring. Patient reports he is weight medication at the [facility] and was feeling well and just got back last night. This morning woke with some headache and generalized fatigue. Some nausea this afternoon that has moderated. No falls or trauma reported. Generalized weakness and body aches reported. No sick contacts reported. Reports elevated pain in the left upper chest to his left shoulder. States has happened at times before and has been related to his rotator cuff. Does hurt a little bit more with movement of the left shoulder. Patient denies significant shortness of breath. Both patient and is noticed some bilateral injection of the eyes as well as some slight goopy discharge here. Reports little bit of a sore throat developing today little bit of fullness of the ears. Some full body erythema noted by the patient and today but no raised quality or pruritus reported. REVIEW OF SYSTEMS: A total of 10 review of systems was obtained and negative except as stated above in the HPI. PAST MEDICAL HISTORY: As noted above MEDICATIONS: Reviewed home medications. SOCIAL HISTORY: Lives with , recently returned from vacation in [place] PHYSICAL EXAM: GENERAL: alert and oriented in no acute distress on stretcher although somewhat fatigued in appearance Head: normocephalic and atraumatic EYES: No icterus without significant discharge at this point with some bilateral conjunctival injection. PERRL NECK: Trachea midline. Supple. ENT: Mucous membranes pink and moist. Pharynx without exudate with some slight erythema. No uvular deviation or significant tonsillar swelling noted. TMs without significant effusion bilaterally with just a hint of some bilateral tympanic membrane erythema bilaterally. LUNGS: Airway patent. No retractions. Breath sounds clear HEART: Regular rate and rhythm. No chest wall tenderness ABDOMEN: Soft and non-tender, without guarding or rebound. SKIN: Acyanotic, warm, dry, without rashes EXTREMITIES: Without swelling, tenderness or deformity NEUROLOGICAL: No focal deficits. No aphasia. No facial droop or slurred speech. Ambulatory. EK bpm sinus tachycardia. No PVC or PAC. No acute ST segment elevation or depression. QTC 423. EK bpm normal sinus rhythm. No PVC or PAC. No acute ST segment elevation or depression. QTC 432. CONTINUOUS CARDIAC MONITORING: was ordered and showed a heart rate of 100s bpm in sinus tachycardia Patient's laboratory studies and imaging reviewed. Differential includes Infection, dehydration, metabolic abnormality, hypo /hyperglycemia, electrolyte disturbance, anemia, hypoxia, cardiac sources, intracerebral event, toxicologic, neurologic, as well as other pathologies. IMPRESSION/MEDICAL DECISION MAKING: Patient admitted proximally 6 weeks ago for sepsis believed to be related to prostatitis and finished last dose of Cipro today. Vaccinate for Covid. Recent travel to [place] but no other sick contacts. Became ill today with viral type symptoms. Developed a bit of diffuse erythema. No evidence of m eningitis on clinical exam or COMMUNITY SUPPORT SPECIALIST/RPA or AOM. EKG and troponin sent given he complains of a little bit of left upper chest discomfort toward the shoulder but may be more muscular related to the shoulder. Chest x-ray and basic labs were ordered. Benign abdomen on exam. Urinalysis and cultures ordered given recent infectious history. Question if this is viral in nature versus more of a bacterial reaction. Do not believe this represents acute allergic reaction/anaphylaxis at this point. Chest x-ray per radiology without acute findings. Blood work with a white count 10.48. Creatinine with LACHELLE newly elevated 1.6 today. Troponin is undetectably low. No transaminitis. CRP minimally elevated 1.2. No lipase elevation. Influenza testing negative. Covid testing negative. Lyme and anaplasmosis not impressive. Procalcitonin is mildly elevated 1.3. CRP mildly about 1.2. Patient fever persist despite some Tylenol. Again doubt this is an allergic rash but questions may be a viral component (the eyes in particular seem more consistent with adenovirus) versus bacterial component. I doubt an acute ophthalmologic emergency at this point especially with the bilateral nature. Patient had some worsening of his left shoulder pain and discomfort. Could be musculoskeletal as it is somewhat reproducible or could be cardiac. Repeat EKG and troponin were sent and reassuring again question if this pain is more musculoskeletal in nature rather the ACS. Discussed with the patient findings. Patient appears unwell. Will cover with Zosyn at this time. Blood and urine cultures are pending. We will asked the hospitalist to evaluate for further observation DIAGNOSIS: Fevers, LACHELLE, chest pain DISPOSITION: Hospitalist will evaluate Patient was agreeable with this plan. Past Med/Surg History Medical History (Updated 10/16/21 @ 01:19 by Byron Leon M.D.) Acute dehydration Diabetes mellitus Fall Fever Fever Nocturnal hypoxemia Sepsis Severe epistaxis Sleep apnea Vomiting Surgical History No pertinent past surgical history Family History Mother Breast cancer Other Parkinson disease Prostate cancer Stroke Denies family history of Ovarian cancer Myocardial infarction Colorectal cancer Social History Smoking Status: Never smoker Tobacco Type: Cigarettes Second Hand Exposure: No; Hx Alcohol Use: Yes (1 glass of wine) Alcohol type: wine Alcohol Intake Frequency: 4 or More x per/Week Hx Substance Use: No Preferred Language: Irish Communication Ability: Effective Visual Impairment: No Limitations Hearing Ability: Normal Block Sealer Required: No Beliefs That Will Affect Care: None marital status: Current Living Situation: Family current occupational status: employed current occupation: [employer] Feels Safe at Home: Yes Dental Care, Regularly: Yes Physical Activity Frequency: 5-6 Times per Week Assistive Devices: None Allergies Allergies Allergy/AdvReac Type Severity Reaction Status Date / Time bee venom protein (honey bee) Allergy Unknown . Verified 09/15/21 11:21 atorvastatin AdvReac Unknown Verified 09/15/21 11:21 pravastatin AdvReac Unknown Verified 09/15/21 11:21 Home Meds Home Medications Medication Instructions Recorded Confirmed epinephrine 0.3 mg/0.3 mL 0.3 mg IM UD PRN #1 ea 08/05/19 10/15/21 injection, auto-injector cholecalciferol (vitamin D3) 125 125 mcg PO DAILY 09/01/21 10/15/21 mcg (5,000 unit) tablet (Vitamin D3) Previous Rx's Medication Instructions Recorded mecobalamin (vitamin B12) 1,000 1,000 mcg PO DAILY #90 tab 05/25/20 mcg chewable tablet amlodipine 10 mg tablet 10 mg PO DAILY #90 tab 12/08/20 metformin 500 mg tablet 500 mg PO BID #180 tab 12/08/20 sildenafil (pulm.hypertension) 20 20 mg PO ONCE PRN #60 tab 02/17/21 mg tablet ciprofloxacin HCl 500 mg tablet 500 mg PO BID 42 Days #84 tab 09/04/21 Results & Data (ED) Vital Signs Vital Signs - 24 hr 10/15/21 18:40 10/15/21 20:00 10/15/21 20:30 Temperature 37.2 C Temperature Source Temporal Artery Scan Pulse Rate 113 H 95 H 95 H Pulse Rate [Apical] Respiratory Rate 20 24 19 Blood Pressure 108/64 Blood Pressure [Right Arm] Blood Pressure Mean 78 Blood Pressure Mean [Right Arm] Blood Pressure Position Sitting Pulse Oximetry 99 98 Oxygen Delivery Method Room Air Room Air Sepsis Recent Fever Within 48 Hours No Sepsis New/Unexplained Change in Mental Status No Sepsis Action Taken by Nursing No Action Required 10/15/21 21:02 10/15/21 21:23 10/15/21 22:00 Temperature 37.8 C H Temperature Source Oral Pulse Rate 87 Pulse Rate [Apical] 98 H Respiratory Rate 23 Blood Pressure 108/60 Blood Pressure [Right Arm] 110/54 L Blood Pressure Mean 76 Blood Pressure Mean [Right Arm] 72 Blood Pressure Position Pulse Oximetry Oxygen Delivery Method Sepsis Recent Fever Within 48 Hours Sepsis New/Unexplained Change in Mental Status Sepsis Action Taken by Nursing 10/15/21 23:00 10/16/21 01:00 Temperature Temperature Source Pulse Rate 82 80 Pulse Rate [Apical] Respiratory Rate 21 20 Blood Pressure 99/54 L 108/57 L Blood Pressure [Right Arm] Blood Pressure Mean 69 74 Blood Pressure Mean [Right Arm] Blood Pressure Position Pulse Oximetry 97 98 Oxygen Delivery Method Room Air Room Air Sepsis Recent Fever Within 48 Hours Sepsis New/Unexplained Change in Mental Status Sepsis Action Taken by Nursing Laboratory Data Result diagrams: 10/15/21 19:34 10/15/21 19:34 Lab Results 10/15/21 10/15/21 10/15/21 Range/Units 19:15 19:15 19:34 WBC 10.48 (4.8-10.8) K/uL RBC 4.78 (4.7-6.1) M/uL Hgb 13.9 L (14.0-18.0) g/dL Hct 41.9 L (42-52) % MCV 87.7 (80-100) fL MCH 29.1 (25-34) pg MCHC 33.2 (32-36) g/dL RDW Std Deviation 41.7 (36.4-46.3) fL RDW Coeff of Kaylah 13.0 (11.5-14.5) % Plt Count 261 (130-400) K/uL MPV 9.7 (7.4-10.4) fL Immature Gran % (Auto) 0.2 % Neut % (Auto) 94.8 % Lymph % (Auto) 3.4 % Cedar % (Auto) 0.9 % Eos % (Auto) 0.6 % Baso % (Auto) 0.1 % Neut # (Auto) 9.94 H (1.4-6.5) K/uL Lymph # (Auto) 0.36 L (1.2-3.4) K/uL Cedar # (Auto) 0.09 L (0.11-0.59) K/uL Eos # (Auto) 0.06 (0-0.5) K/uL Baso # (Auto) 0.01 (0-0.2) K/uL Immature Gran # (Auto) 0.02 (0.00-0.02) K/uL RBC Morphology Unremarkable Sodium (136-145) mmol/L Potassium (3.5-5.1) mmol/L Chloride (98-107) mmol/L Carbon Dioxide (21-32) mmol/L Anion Gap (3-11) BUN (7-18) mg/dl Creatinine (0.6-1.4) mg/dl Est Cr Clr Drug Dosing ml/min Est GFR ( Amer) ml/min Est GFR (Non-Af Amer) ml/min BUN/Creatinine Ratio (10-20) Glucose (70-99) mg/dl Lactate (0.4-2.0) mmol/L Calcium (8.5-10.1) mg/dl Total Bilirubin (0.2-1) mg/dl AST (15-37) U/L ALT (12-78) U/L Alkaline Phosphatase (45-117) U/L Troponin I (0-0.045) ng/ml C-Reactive Protein (0-0.29) mg/dl Total Protein (6.4-8.2) gm/dl Albumin (3.4-5.0) gm/dl Globulin (2.5-4.0) gm/dl Albumin/Globulin Ratio (0.9-2) Lipase (73-393) U/L Procalcitonin (0-0.5) ng/ml Urine Color Urine Appearance (Clear) Urine pH (4.5-7.5) Ur Specific Mccormick (1.000-1.030) Urine Protein (Negative) Urine Glucose (UA) (Negative) Urine Ketones (Negative) Urine Blood (Negative) Urine Nitrite (Negative) Urine Bilirubin (Negative) Urine Urobilinogen (Negative) Ur Leukocyte Esterase (Negative) Urine WBC (Auto) (0-5) /hpf Urine RBC (Auto) (0-4) /hpf U Hyaline Cast (Auto) (0-5) /lpf U Epithel Cells (Auto) (0-5) /lpf Urine Bacteria (Auto) (Negative) Anaplasma Smear See Comment Lyme Disease IgG Ab (Negative) Lyme Disease IgM Ab (Negative) SARS-CoV-2 (PCR) NEGATIVE (Negative) Influ A Molecular Assay Negative (Negative) Influ B Molecular Assay Negative (Negative) 10/15/21 10/15/21 10/15/21 Range/Units 19:34 19:34 19:34 WBC (4.8-10.8) K/uL RBC (4.7-6.1) M/uL Hgb (14.0-18.0) g/dL Hct (42-52) % MCV (80-100) fL MCH (25-34) pg MCHC (32-36) g/dL RDW Std Deviation (36.4-46.3) fL RDW Coeff of Kaylah (11.5-14.5) % Plt Count (130-400) K/uL MPV (7.4-10.4) fL Immature Gran % (Auto) % Neut % (Auto) % Lymph % (Auto) % Cedar % (Auto) % Eos % (Auto) % Baso % (Auto) % Neut # (Auto) (1.4-6.5) K/uL Lymph # (Auto) (1.2-3.4) K/uL Cedar # (Auto) (0.11-0.59) K/uL Eos # (Auto) (0-0.5) K/uL Baso # (Auto) (0-0.2) K/uL Immature Gran # (Auto) (0.00-0.02) K/uL RBC Morphology Sodium 135 L (136-145) mmol/L Potassium 3.9 (3.5-5.1) mmol/L Chloride 104 (98-107) mmol/L Carbon Dioxide 25 (21-32) mmol/L Anion Gap 6.0 (3-11) BUN 20 H (7-18) mg/dl Creatinine 1.61 H (0.6-1.4) mg/dl Est Cr Clr Drug Dosing 55.3 ml/min Est GFR ( Amer) 50.5 ml/min Est GFR (Non-Af Amer) 43.6 ml/min BUN/Creatinine Ratio 12.6 (10-20) Glucose 126 H (70-99) mg/dl Lactate 1.7 (0.4-2.0) mmol/L Calcium 9.5 (8.5-10.1) mg/dl Total Bilirubin 0.7 (0.2-1) mg/dl AST 29 (15-37) U/L ALT 41 (12-78) U/L Alkaline Phosphatase 62 (45-117) U/L Troponin I < 0.015 (0-0.045) ng/ml C-Reactive Protein 1.20 H (0-0.29) mg/dl Total Protein 7.0 (6.4-8.2) gm/dl Albumin 3.3 L (3.4-5.0) gm/dl Globulin 3.7 (2.5-4.0) gm/dl Albumin/Globulin Ratio 0.9 (0.9-2) Lipase 191 (73-393) U/L Procalcitonin 1.36 H (0-0.5) ng/ml Urine Color Urine Appearance (Clear) Urine pH (4.5-7.5) Ur Specific Mccormick (1.000-1.030) Urine Protein (Negative) Urine Glucose (UA) (Negative) Urine Ketones (Negative) Urine Blood (Negative) Urine Nitrite (Negative) Urine Bilirubin (Negative) Urine Urobilinogen (Negative) Ur Leukocyte Esterase (Negative) Urine WBC (Auto) (0-5) /hpf Urine RBC (Auto) (0-4) /hpf U Hyaline Cast (Auto) (0-5) /lpf U Epithel Cells (Auto) (0-5) /lpf Urine Bacteria (Auto) (Negative) Anaplasma Smear Lyme Disease IgG Ab Negative (Negative) Lyme Disease IgM Ab Negative (Negative) SARS-CoV-2 (PCR) (Negative) Influ A Molecular Assay (Negative) Influ B Molecular Assay (Negative) 10/15/21 10/15/21 Range/Units 21:35 22:04 WBC (4.8-10.8) K/uL RBC (4.7-6.1) M/uL Hgb (14.0-18.0) g/dL Hct (42-52) % MCV (80-100) fL MCH (25-34) pg MCHC (32-36) g/dL RDW Std Deviation (36.4-46.3) fL RDW Coeff of Kaylah (11.5-14.5) % Plt Count (130-400) K/uL MPV (7.4-10.4) fL Immature Gran % (Auto) % Neut % (Auto) % Lymph % (Auto) % Cedar % (Auto) % Eos % (Auto) % Baso % (Auto) % Neut # (Auto) (1.4-6.5) K/uL Lymph # (Auto) (1.2-3.4) K/uL Cedar # (Auto) (0.11-0.59) K/uL Eos # (Auto) (0-0.5) K/uL Baso # (Auto) (0-0.2) K/uL Immature Gran # (Auto) (0.00-0.02) K/uL RBC Morphology Sodium (136-145) mmol/L Potassium (3.5-5.1) mmol/L Chloride (98-107) mmol/L Carbon Dioxide (21-32) mmol/L Anion Gap (3-11) BUN (7-18) mg/dl Creatinine (0.6-1.4) mg/dl Est Cr Clr Drug Dosing ml/min Est GFR ( Amer) ml/min Est GFR (Non-Af Amer) ml/min BUN/Creatinine Ratio (10-20) Glucose (70-99) mg/dl Lactate (0.4-2.0) mmol/L Calcium (8.5-10.1) mg/dl Total Bilirubin (0.2-1) mg/dl AST (15-37) U/L ALT (12-78) U/L Alkaline Phosphatase (45-117) U/L Troponin I < 0.015 (0-0.045) ng/ml C-Reactive Protein (0-0.29) mg/dl Total Protein (6.4-8.2) gm/dl Albumin (3.4-5.0) gm/dl Globulin (2.5-4.0) gm/dl Albumin/Globulin Ratio (0.9-2) Lipase (73-393) U/L Procalcitonin (0-0.5) ng/ml Urine Color Yellow Urine Appearance Clear (Clear) Urine pH 5.0 (4.5-7.5) Ur Specific Mccormick 1.013 (1.000-1.030) Urine Protein Negative (Negative) Urine Glucose (UA) Negative (Negative) Urine Ketones Negative (Negative) Urine Blood Negative (Negative) Urine Nitrite Negative (Negative) Urine Bilirubin Negative (Negative) Urine Urobilinogen Negative (Negative) Ur Leukocyte Esterase 1+ H (Negative) Urine WBC (Auto) 10-30 H (0-5) /hpf Urine RBC (Auto) 0-4 (0-4) /hpf U Hyaline Cast (Auto) 1-5 (0-5) /lpf U Epithel Cells (Auto) 20-30 H (0-5) /lpf Urine Bacteria (Auto) Negative (Negative) Anaplasma Smear Lyme Disease IgG Ab (Negative) Lyme Disease IgM Ab (Negative) SARS-CoV-2 (PCR) (Negative) Influ A Molecular Assay (Negative) Influ B Molecular Assay (Negative) Administered Medications Discontinued Medications Acetaminophen (Acetaminophen 500 Mg Tab) 1,000 mg PO ONE STA Stop: 10/15/21 19:00 Last Admin: 10/15/21 19:21 Dose: 1,000 mg Documented by: [id number] Fentanyl Citrate (Fentanyl Citrate 100 Mcg/2 Ml Vial) 25 mcg IV NOW STA Stop: 10/15/21 22:26 Last Admin: 10/15/21 22:36 Dose: 25 mcg Documented by: [id number] Sodium Chloride (Nss 1000ml) 1,000 mls @ 999 mls/hr IV .Q1H1M STA Stop: 10/15/21 19:59 Last Infusion: 10/15/21 20:29 Dose: 0 mls/hr Documented by: [id number] Admin: 10/15/21 19:21 Dose: 999 mls/hr Documented by: [id number] Piperacillin Sod/Tazobactam Sod (Zosyn) 4.5 gm in 120 mls @ 240 mls/hr IV NOW ONE Stop: 10/15/21 22:29 Last Infusion: 10/15/21 22:52 Dose: 0 mls/hr Documented by: [id number] Admin: 10/15/21 22:07 Dose: 240 mls/hr Documented by: [id number] Imaging Data Radiologist's Impression: Chest X-Ray 10/15/21 18:59 SINGLE VIEW CHEST CLINICAL HISTORY: Atypical chest pain. FINDINGS: An AP, portable, upright chest radiograph is compared to study dated 09/01/2021. Correlation is made with chest CT dated 11/07/2014. The heart is top normal for projection. There is bibasilar scarring/atelectasis. The lungs and pleural spaces are otherwise clear. No pneumothorax is seen. The bony thorax is grossly intact. IMPRESSION: No active disease in the chest. ACT 112: Negative or not required by law. Electronically signed by: Castro Adams M.D. 10/15/2021 7:57 PM Discharge Plan Visit Data Chief Complaint: Illness Stated Complaint: headache, dizzy, nausea, weakness ED Provider: Byron Leon Discharge Problem: Fever, Chest pain, LACHELLE (acute kidney injury) Forms Stand Alone Forms: [facility] Prescriptions Prescriptions: No Action mecobalamin (vitamin B12) 1,000 mcg tablet,chewable 1,000 mcg PO DAILY Qty: 90 RF: 3 amlodipine 10 mg tablet 10 mg PO DAILY Qty: 90 RF: 3 metformin 500 mg tablet 500 mg PO BID Qty: 180 RF: 3 epinephrine 0.3 mg/0.3 mL auto-injector 0.3 mg IM UD PRN (Reason: Allergic Reaction) Qty: 1 RF: 0 sildenafil (pulm.hypertension) 20 mg tablet 20 mg PO ONCE PRN (Reason: sexual activity) Qty: 60 RF: 6 cholecalciferol (vitamin D3) [Vitamin D3] 125 mcg (5,000 unit) Tablet 125 mcg PO DAILY RF: 0 ciprofloxacin HCl 500 mg tablet 500 mg PO BID 42 Days Qty: 84 RF: 0 Referrals Referrals: Haritha Mckoy MD [Primary Care Provider] -
[2021-10-15] MEDS ORDERED: ACETAMINOPHEN 500 MG TAB PO STA (18:59)
[2021-10-15] MEDS ORDERED: SODIUM CHLORIDE 0.9% 1000ML 1,000 ML IV STA (18:59)
[2021-10-15 19:44] LABS: Influenza A virus by PCR Negative (Negative); Influenza B virus by PCR Negative (Negative)
[2021-10-15 19:45] LABS: Basophils # (auto) 0.01 K/uL (0-0.2); Basophils % (auto) 0.1 %; Eosinophils # (auto) 0.06 K/uL (0-0.5); Eosinophils % (auto) 0.6 %; Hematocrit (blood only) 41.9 % (42-52); Hemoglobin 13.9 g/dL (14.0-18.0); Immature Granulocytes # (auto) 0.02 K/uL (0.00-0.02); Immature Granulocytes % (auto) 0.2 %; Lymphocytes # (auto) 0.36 K/uL (1.2-3.4); Lymphocytes % (auto) 3.4 %; Mean Corpuscular Hemoglobin 29.1 pg (25-34); Mean Corpuscular Hgb Conc 33.2 g/dL (32-36); Mean Corpuscular Volume 87.7 fL (80-100); Mean Platelet Volume 9.7 fL (7.4-10.4); Monocytes # (auto) 0.09 K/uL (0.11-0.59); Monocytes % (auto) 0.9 %; Neutrophils # (auto) 9.94 K/uL (1.4-6.5); Neutrophils % (auto) 94.8 %; Platelet Count 261 K/uL (130-400); RDW Standard Deviation 41.7 fL (36.4-46.3); Red Blood Count 4.78 M/uL (4.7-6.1); White Blood Count 10.48 K/uL (4.8-10.8)
--- NOTE | 2021-10-15 19:59 | XRay Report ---
SINGLE VIEW CHEST CLINICAL HISTORY: Atypical chest pain. FINDINGS: An AP, portable, upright chest radiograph is compared to study dated 09/01/2021. Correlatio n is made with chest CT dated 11/07/2014. The heart is top normal for projection. There is bibasilar scarring/atelectasis. The lungs and pleural spaces are otherwise clear. No pneumothorax is seen. The bony thorax is grossly intact. IMPRESSION: No active disease in the chest. ACT 112: Negative or not required by law. Electronically signed by: Castro Adams M.D. 10/15/2021 7:57 PM
[2021-10-15 20:11] LABS: Alanine Aminotransferase 41 U/L (12-78); Albumin Level 3.3 gm/dl (3.4-5.0); Aspartate Aminotransferase 29 U/L (15-37); BUN Creatinine Ratio 12.6 (10-20); Blood Urea Nitrogen 20 mg/dl (7-18); Calcium 9.5 mg/dl (8.5-10.1); Carbon Dioxide 25 mmol/L (21-32); Chloride 104 mmol/L (98-107); Creatinine Clr Calc Pharmacy 55.3 ml/min; Est GFR (African American) 50.5 ml/min; Est GFR (Non-African American) 43.6 ml/min; Glucose 126 mg/dl (70-99); Lipase 191 U/L (73-393); Potassium 3.9 mmol/L (3.5-5.1); Sodium 135 mmol/L (136-145)
[2021-10-15 20:16] LABS: Albumin Globulin Ratio 0.9 (0.9-2); Alkaline Phosphatase 62 U/L (45-117); Bilirubin,Total 0.7 mg/dl (0.2-1); Globulin 3.7 gm/dl (2.5-4.0); Troponin I < 0.015 ng/ml (0-0.045)
[2021-10-15 20:30] LABS: Procalcitonin 1.36 ng/ml (0-0.5)
[2021-10-15 20:36] LABS: Lyme Ab IgG w/WB Rflx Negative (Negative); Lyme Ab IgM w/WB Rflx Negative (Negative)
[2021-10-15 21:23] LABS: RBC Morphology Unremarkable
[2021-10-15] MEDS ORDERED: PIPERACILLIN/TAZOBACTAM 4.5 GM/120 ML BAG IV ONE (22:00)
[2021-10-15] MEDS ORDERED: PIPERACILL/TAZOBAC CONSULT ACTIVE PRN (22:00)
[2021-10-15 22:22] LABS: Appearance Urine Clear (Clear); Bacteria Urine Automated Negative (Negative); Bilirubin Urine Negative (Negative); Blood Urine Negative (Negative); Color Urine Yellow; Epithelial Cell Urine Auto 20-30 /lpf (0-5); Glucose Urine UA Negative (Negative); Ketones Urine Negative (Negative); Leukocyte Esterase Urine 1+ (Negative); Nitrite Urine Negative (Negative); Protein Urine Negative (Negative); RBC Urine Automated 0-4 /hpf (0-4); Specific Gravity Urine 1.013 (1.000-1.030); Urobilinogen Urine Negative (Negative)
[2021-10-15] MEDS ORDERED: fentaNYL citrate 100 MCG/2 ML VIAL IV STA (22:25)
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
[2021-10-16] MEDS ORDERED: SODIUM CHLORIDE 0.9% 1000ML 500 ML IV ONE (01:24)
[2021-10-16] MEDS ORDERED: PIPERACILL/TAZOBAC CONSULT ACTIVE PRN (06:32)
[2021-10-16] MEDS ORDERED: ONDANSETRON INJ 2 MG/ML 2 ML VIAL IV PRN (06:32)
[2021-10-16] MEDS: SODIUM CHLORIDE 0.9% 1000ML 1,000 ML IV SCH ×2 (06:42→15:54)
--- NOTE | 2021-10-16 07:17 | Electrocardiogram Report ---
Test Reason : Blood Pressure : / mmHG Vent. Rate : 104 BPM Atrial Rate : 104 BPM P-R Int : 190 ms QRS Dur : 086 ms QT Int : 322 ms P-R-T Axes : 056 085 036 degrees QTc Int : 423 ms Sinus tachycardia Otherwise normal ECG When compared with ECG of 01-SEP-2021 12:42, QRS axis Shifted left Confirmed by Jimmy Lamb ([id number]) on 10/16/2021 7:16:53 AM Referred By: REFERRED SELF Confirmed By:Pan Lamb
--- NOTE | 2021-10-16 07:20 | Electrocardiogram Report ---
Test Reason : Blood Pressure : / mmHG Vent. Rate : 091 BPM Atrial Rate : 091 BPM P-R Int : 178 ms QRS Dur : 090 ms QT Int : 352 ms P-R-T Axes : 054 062 039 degrees QTc Int : 432 ms Normal sinus rhythm Normal ECG When compared with ECG of 15-OCT-2021 19:07, (unconfirmed) No significant change was found Confirmed by Jimmy Lamb ([id number]) on 10/16/2021 7:19:51 AM Referred By: REFERRED SELF Confirmed By:Pan Lamb
[2021-10-16] MEDS: PIPERACILLIN/TAZOBACTAM 3.375 GM in DEXTROSE 5% 100 ML IV SCH ×3 (08:09→23:05)
[2021-10-16] MEDS: amLODIPine BESYLATE 5 MG TAB PO SCH (08:10)
[2021-10-16 08:38] LABS: Basophils # (auto) 0.02 K/uL (0-0.2); Basophils % (auto) 0.2 %; Eosinophils # (auto) 0.05 K/uL (0-0.5); Eosinophils % (auto) 0.4 %; Hematocrit (blood only) 40.2 % (42-52); Hemoglobin 13.4 g/dL (14.0-18.0); Immature Granulocytes # (auto) 0.03 K/uL (0.00-0.02); Immature Granulocytes % (auto) 0.2 %; Lymphocytes % (auto) 2.4 %; Mean Corpuscular Hemoglobin 29.1 pg (25-34); Mean Corpuscular Hgb Conc 33.3 g/dL (32-36); Mean Corpuscular Volume 87.4 fL (80-100); Mean Platelet Volume 9.8 fL (7.4-10.4); Monocytes % (auto) 4.9 %; Neutrophils # (auto) 11.34 K/uL (1.4-6.5); Neutrophils % (auto) 91.9 %; Platelet Count 256 K/uL (130-400); RDW Coefficient of Variation 13.1 % (11.5-14.5); RDW Standard Deviation 41.9 fL (36.4-46.3); White Blood Count 12.34 K/uL (4.8-10.8)
[2021-10-16 08:55] LABS: Albumin Level 2.8 gm/dl (3.4-5.0); BUN Creatinine Ratio 12.2 (10-20); Calcium 8.8 mg/dl (8.5-10.1); Creatinine Clr Calc Pharmacy 68.3 ml/min; Est GFR (African American) 65.4 ml/min; Est GFR (Non-African American) 56.5 ml/min; Potassium 4.1 mmol/L (3.5-5.1)
[2021-10-16 09:07] LABS: Albumin Globulin Ratio 0.8 (0.9-2); Bilirubin,Total 1.2 mg/dl (0.2-1); Globulin 3.5 gm/dl (2.5-4.0); Total Protein 6.3 gm/dl (6.4-8.2)
[2021-10-16] MEDS: ACETAMINOPHEN 325 MG TAB PO PRN ×2 (15:25→23:04)
[2021-10-16] MEDS: DICLOFENAC SOD 1% GEL 100 GM TUBE EXT PRN ×2 (15:26→23:05)
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
--- NOTE | 2021-10-16 20:23 | XRay Report ---
XR shoulder LT min 2V routine CLINICAL HISTORY: Left shoulder joint pain. COMPARISON STUDY: No previous studies for comparison. TECHNIQUE: 3 left shoulder views FINDINGS: Bones: There is no evidence for an acute fracture or dislocation. There is no lytic or blastic lesion . Joints: The joint spaces are maintained. The bones are in anatomic alignment. Soft tissues: There is no focal soft tissue abnormality. There is no radiopaque foreign body. IMPRESSION: No acute osseous pathology. ACT 112: Negative or not required by law. Electronically signed by: Barry Belle M.D. 10/16/2021 8:22 PM
--- NOTE | 2021-10-16 22:05 | Billing Data ---
Date of Service October 16, 2021 Coding Level of Care Code INT OBSERVATION CARE 70M LVL 3
[2021-10-17] MEDS: PIPERACILLIN/TAZOBACTAM 3.375 GM in DEXTROSE 5% 100 ML IV SCH (07:45)
[2021-10-17 07:56] LABS: Basophils # (auto) 0.02 K/uL (0-0.2); Basophils % (auto) 0.3 %; Eosinophils # (auto) 0.33 K/uL (0-0.5); Eosinophils % (auto) 4.7 %; Hematocrit (blood only) 36.9 % (42-52); Hemoglobin 12.1 g/dL (14.0-18.0); Immature Granulocytes # (auto) 0.01 K/uL (0.00-0.02); Immature Granulocytes % (auto) 0.1 %; Lymphocytes # (auto) 0.98 K/uL (1.2-3.4); Mean Corpuscular Hemoglobin 28.7 pg (25-34); Mean Corpuscular Hgb Conc 32.8 g/dL (32-36); Mean Corpuscular Volume 87.6 fL (80-100); Monocytes # (auto) 0.42 K/uL (0.11-0.59); Neutrophils # (auto) 5.26 K/uL (1.4-6.5); Neutrophils % (auto) 74.9 %; Platelet Count 248 K/uL (130-400); RDW Coefficient of Variation 13.4 % (11.5-14.5); RDW Standard Deviation 42.8 fL (36.4-46.3); Red Blood Count 4.21 M/uL (4.7-6.1); White Blood Count 7.02 K/uL (4.8-10.8)
[2021-10-17 08:53] LABS: Albumin Globulin Ratio 0.8 (0.9-2); Albumin Level 2.6 gm/dl (3.4-5.0); BUN Creatinine Ratio 9.9 (10-20); Calcium 8.6 mg/dl (8.5-10.1); Creatinine Clr Calc Pharmacy 87.6 ml/min; Est GFR (African American) 89.9 ml/min; Est GFR (Non-African American) 77.5 ml/min; Globulin 3.4 gm/dl (2.5-4.0); Potassium 3.7 mmol/L (3.5-5.1)
[2021-10-17] MEDS: amLODIPine BESYLATE 5 MG TAB PO SCH ×2 (10:43→10:46)
[2021-10-17] MEDS ORDERED: BETAMETH SOD PHOS/ACETATE IA 6 MG/ML IA STA (11:21)
[2021-10-17] MEDS ORDERED: BUPIVACAINE 0.5 % 5 MG/1 ML MPF 30ML VIAL IA ONE (11:22)
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
== END 2021-10-17 16:10 | disposition home or self-care (01) ==
LOC: ED 18:37 → EDINP 18:37 → SUATTDRO 23:58 → 2N 10-16 02:33